=== PATIENT | male | born 1980 | race African-American/Black ===

== ENCOUNTER 2018-05-22 23:28 | Inpatient (IN) ==
[2018-05-23] MEDS ORDERED: ONDANSETRON 4 MG/2 ML VIAL IV PRN (01:57)
[2018-05-23] MEDS ORDERED: BISACODYL 5 MG TABLET PO PRN (01:57)
[2018-05-23] MEDS ORDERED: NICOTINE 21 MG/24 HR PATCH TRANSDERM PRN (01:57)
[2018-05-23] MEDS ORDERED: MORPHINE 4 MG/1 ML VIAL IV PRN (01:57)
[2018-05-23] MEDS ORDERED: guaiFENesin/DM ER 600-30 MG TABLET PO PRN (01:57)
[2018-05-23] MEDS ORDERED: ACETAMINOPHEN 325 MG TABLET PO PRN (01:57)
[2018-05-23] MEDS ORDERED: ALBUTEROL/IPRATROPIUM 3 ML NEB RESP TX PRN (01:57)
[2018-05-23] MEDS ORDERED: diphenhydrAMINE CAP 25 MG CAPSULE PO PRN (01:57)
[2018-05-23 03:00] LABS: Basophils # 0.1 10*3/uL (0.0-0.2); Basophils % 0.9 % (0.0-0.8); Eosinophils # 0.2 10*3/uL (0.0-0.87); Eosinophils % 1.8 % (0.00-10.9); Hematocrit 43.9 VOL% (42.0-52.0); Hemoglobin 14.3 GM/DL (14.0-18.0); Immature Granulocytes % 0.4 %; Immature Granulocytes Absolute 0.04 #; Lymphocytes % 29.4 % (21.2-54.2); Mean Corpuscular HGB Conc 32.6 GM/DL (32-36); Mean Corpuscular Hemoglobin 30 PG (27-34); Mean Corpuscular Volume 92.2 FL (87-102); Mean Platelet Volume 11.6 FL (9.6-12.0); Monocytes # 0.6 10*3/uL (0.11-0.8); Monocytes % 5.4 % (1.7-12.7); NRBC # 0.04 10*3/uL; Neutrophils # 6.4 10*3/uL (1.4-7.4); Neutrophils % 62.1 % (38.7-73.9); Platelet Count 173 T/CUMM (130-400); Red Blood Count 4.76 MC/CUMM (3.8-5.5); Red Cell Distribution Width 14.8 % (9.3-17.3); White Blood Count 10.2 T/CUMM (4-12)
[2018-05-23 03:08] LABS: Albumin 3.6 G/DL (3.4-5.0); Bilirubin,Total 0.9 MG/DL (0.2-1.0); Calcium 8.8 MG/DL (8.5-10.1); Osmolality,Calculated 281.4 MOS/KG (273-304); Potassium 3.8 MMOL/L (3.5-5.1); Risk Ratio 3.67; Thyroid Stimulating Hormone 2.55 uIU/ml (0.358-3.74); VLDL CHOLESTEROL 40.6 MG/DL
[2018-05-23 04:03] LABS: Basophils # 0.1 10*3/uL (0.0-0.2); Eosinophils # 0.2 10*3/uL (0.0-0.87); Eosinophils % 1.9 % (0.00-10.9); Hematocrit 41.1 VOL% (42.0-52.0); Hemoglobin 13.3 GM/DL (14.0-18.0); Immature Granulocytes % 0.4 %; Immature Granulocytes Absolute 0.04 #; Lymphocytes # 2.5 10*3/uL (1.4-4.0); Lymphocytes % 27.1 % (21.2-54.2); Mean Corpuscular HGB Conc 32.4 GM/DL (32-36); Mean Corpuscular Hemoglobin 30 PG (27-34); Monocytes # 0.6 10*3/uL (0.11-0.8); Monocytes % 6.2 % (1.7-12.7); NRBC # 0.02 10*3/uL; Neutrophils # 5.9 10*3/uL (1.4-7.4); Neutrophils % 63.4 % (38.7-73.9); Platelet Count 161 T/CUMM (130-400); Red Blood Count 4.42 MC/CUMM (3.8-5.5); Red Cell Distribution Width 14.8 % (9.3-17.3); White Blood Count 9.3 T/CUMM (4-12)
[2018-05-23] MEDS ORDERED: hydrALAZINE 20 MG/1 ML VIAL IV PRN (04:25)
[2018-05-23] MEDS: ALBUTEROL/IPRATROPIUM 3 ML NEB RESP TX SCH ×2 (07:11→13:10)
[2018-05-23] MEDS: FUROSEMIDE 40 MG/4 ML VIAL IV SCH ×2 (08:45→15:11)
[2018-05-23] MEDS: PANTOPRAZOLE 40 MG TABLET PO SCH (08:45)
[2018-05-23] MEDS: CARVEDILOL 6.25 MG TABLET PO SCH ×2 (08:53→20:46)
[2018-05-23] MEDS: ENOXAPARIN 40 MG/0.4 ML SYRINGE SUBCUT SCH (08:53)
[2018-05-23] MEDS ORDERED: ENOXAPARIN 40 MG/0.4 ML SYRINGE SUBCUT SCH (09:00)
[2018-05-23] MEDS ORDERED: ASPIRIN 325 MG TABLET PO SCH (09:00)
[2018-05-23] MEDS ORDERED: LOSARTAN 25 MG TABLET PO SCH (09:00)
[2018-05-23] MEDS ORDERED: CARVEDILOL 6.25 MG TABLET PO SCH (09:00)
[2018-05-23 11:42] LABS: Apearance,Urine CLEAR (Clear); Bilirubin,Urine Negative (Negative); Blood, Urine Negative (Negative); Glucose,Urine (UA) Negative (Negative); Ketones,Urine Negative (Negative); Nitrite,Urine Negative (Negative); Protein,Urine Negative; Urine Color Straw (Yellow); Urine Specific Gravity 1.005 (1.001-1.035); Urine Urobilinogen < 2.0 EU/DL (0.2-1.0); WBC,Urine <1 /HPF (0-6)
[2018-05-23 12:06] LABS: Barbiturates Screen,Urine Negative (Negative); Benzodiazepines Screen,Urine Negative (Negative); Cannabinoid Screen,Urine Negative (Negative); Opiate Screen,Urine Negative (Negative); Phencyclidine Screen,Urine Negative (Negative)
[2018-05-23 19:01] LABS: HIV Antigen/Antibody Result Nonreactive (Nonreactive)
[2018-05-23] MEDS: ATORVASTATIN 40 MG TABLET PO SCH (20:46)
[2018-05-24] MEDS: ZALEPLON 5 MG CAPSULE PO PRN (01:13)
[2018-05-24 07:16] LABS: Basophils # 0.1 10*3/uL (0.0-0.2); Basophils % 0.7 % (0.0-0.8); Eosinophils # 0.3 10*3/uL (0.0-0.87); Eosinophils % 3.5 % (0.00-10.9); Hemoglobin 13.6 GM/DL (14.0-18.0); Immature Granulocytes % 0.5 %; Immature Granulocytes Absolute 0.05 #; Lymphocytes % 21.9 % (21.2-54.2); Mean Corpuscular HGB Conc 31.6 GM/DL (32-36); Mean Corpuscular Hemoglobin 30 PG (27-34); Mean Corpuscular Volume 93.7 FL (87-102); Mean Platelet Volume 11.1 FL (9.6-12.0); Monocytes # 0.4 10*3/uL (0.11-0.8); Monocytes % 4.8 % (1.7-12.7); Neutrophils # 6.2 10*3/uL (1.4-7.4); Neutrophils % 68.6 % (38.7-73.9); Platelet Count 172 T/CUMM (130-400); Red Blood Count 4.59 MC/CUMM (3.8-5.5); Red Cell Distribution Width 14.9 % (9.3-17.3); White Blood Count 9.1 T/CUMM (4-12)
[2018-05-24 07:32] LABS: Calcium 8.6 MG/DL (8.5-10.1); Osmolality,Calculated 283.3 MOS/KG (273-304); Potassium 3.8 MMOL/L (3.5-5.1)
[2018-05-24] MEDS: FUROSEMIDE 40 MG/4 ML VIAL IV SCH ×2 (08:06→15:17)
[2018-05-24] MEDS: ASPIRIN EC 81 MG TABLET PO SCH ×2 (08:18→12:25)
[2018-05-24] MEDS: ENOXAPARIN 40 MG/0.4 ML SYRINGE SUBCUT SCH ×2 (08:18→12:25)
[2018-05-24] MEDS: PANTOPRAZOLE 40 MG TABLET PO SCH (08:18)
[2018-05-24] MEDS: LISINOPRIL 2.5 MG TABLET PO SCH (08:18)
[2018-05-24] MEDS: CARVEDILOL 6.25 MG TABLET PO SCH ×2 (08:18→20:46)
[2018-05-24] MEDS ORDERED: POTASSIUM CHLORIDE RIDER 10 MEQ in PREMIX 1 EACH IV PRN (09:57)
[2018-05-24] MEDS ORDERED: MAGNESIUM SULF RIDER 2 GM in PREMIX 1 EACH IV PRN (09:57)
[2018-05-24] MEDS ORDERED: diphenhydrAMINE CAP 25 MG CAPSULE PO ONE (09:57)
[2018-05-24] MEDS ORDERED: DIAZEPAM 5 MG TABLET PO ONE (09:57)
[2018-05-24 10:28] LABS: INR 1.1; PT Patient Result 11.6 SECS
[2018-05-24] MEDS ORDERED: HEPARIN/NACL 0.9% 2 UNITS/ML 1,000 ML IV ONE (12:16)
[2018-05-24] MEDS ORDERED: SODIUM BICARBONATE 2.4 MEQ/5 ML VIAL ONE (12:39)
[2018-05-24] MEDS ORDERED: LIDOCAINE 1% 20 ML VIAL ONE (12:39)
[2018-05-24] MEDS ORDERED: fentaNYL 100 MCG/2 ML VIAL ONE (12:39)
[2018-05-24] MEDS ORDERED: MIDAZOLAM 2 MG/2 ML VIAL ONE (12:39)
[2018-05-24] MEDS ORDERED: hydrALAZINE 20 MG/1 ML VIAL ONE (12:59)
[2018-05-24] MEDS ORDERED: ACETAMINOPHEN/CODEINE 300-30 MG TABLET PO PRN (13:25)
[2018-05-24] MEDS ORDERED: SODIUM CHLORIDE 0.9% 1,000 ML IV SCH (13:30)
[2018-05-24] MEDS: ATORVASTATIN 40 MG TABLET PO SCH (20:46)
[2018-05-25] MEDS: ZALEPLON 5 MG CAPSULE PO PRN (00:46)
[2018-05-25 05:53] LABS: Basophils # 0.1 10*3/uL (0.0-0.2); Basophils % 0.9 % (0.0-0.8); Eosinophils # 0.3 10*3/uL (0.0-0.87); Eosinophils % 4.2 % (0.00-10.9); Hematocrit 41.9 VOL% (42.0-52.0); Hemoglobin 13.4 GM/DL (14.0-18.0); Immature Granulocytes % 0.4 %; Immature Granulocytes Absolute 0.03 #; Lymphocytes # 2.4 10*3/uL (1.4-4.0); Lymphocytes % 29.5 % (21.2-54.2); Mean Corpuscular Hemoglobin 30 PG (27-34); Mean Corpuscular Volume 92.7 FL (87-102); Mean Platelet Volume 11.2 FL (9.6-12.0); Monocytes # 0.4 10*3/uL (0.11-0.8); Monocytes % 5.4 % (1.7-12.7); Neutrophils # 4.9 10*3/uL (1.4-7.4); Neutrophils % 59.6 % (38.7-73.9); Platelet Count 164 T/CUMM (130-400); Red Blood Count 4.52 MC/CUMM (3.8-5.5); Red Cell Distribution Width 14.8 % (9.3-17.3); White Blood Count 8.2 T/CUMM (4-12)
[2018-05-25 06:07] LABS: Calcium 8.5 MG/DL (8.5-10.1); Osmolality,Calculated 278.7 MOS/KG (273-304)
[2018-05-25] MEDS: FUROSEMIDE 40 MG/4 ML VIAL IV SCH (08:46)
[2018-05-25] MEDS: PANTOPRAZOLE 40 MG TABLET PO SCH (08:47)
[2018-05-25] MEDS: ASPIRIN EC 81 MG TABLET PO SCH (08:47)
[2018-05-25] MEDS: CARVEDILOL 6.25 MG TABLET PO SCH (08:47)
[2018-05-25] MEDS: LISINOPRIL 2.5 MG TABLET PO SCH (08:47)
[2018-05-25] MEDS: ENOXAPARIN 40 MG/0.4 ML SYRINGE SUBCUT SCH (08:47)
[2018-05-25 15:13] VITALS: BP 126/74
== END 2018-05-25 15:23 | disposition home or self-care (01) | DRG 287 ==
LOC: SUATTDRO 05-23 01:08 → N.5E 05-23 01:08 → INTOOBSV 05-23 01:08
PROVIDERS: ADMIT Internal Medicine; ATTEND Internal Medicine
PROC: CLCCHCL (ICD-10-PCS; 2018-05-24 12:15)

== ENCOUNTER 2018-06-21 02:18 | Inpatient (IN) ==
[2018-06-21] MEDS ORDERED: ZALEPLON 5 MG CAPSULE PO PRN (03:01)
[2018-06-21] MEDS ORDERED: MAGNESIUM SULF RIDER 4 GM in PREMIX 1 EACH IV PRN (03:01)
[2018-06-21] MEDS ORDERED: MAGNESIUM SULF RIDER 2 GM in PREMIX 1 EACH IV PRN (03:01)
[2018-06-21] MEDS ORDERED: DOCUSATE SODIUM 100 MG CAPSULE PO PRN (03:01)
[2018-06-21] MEDS ORDERED: POTASSIUM CHLORIDE RIDER 10 MEQ in PREMIX 1 EACH IV PRN (03:01)
[2018-06-21] MEDS ORDERED: MORPHINE 4 MG/1 ML VIAL IV PRN (03:01)
[2018-06-21] MEDS ORDERED: ONDANSETRON 4 MG/2 ML VIAL IV PRN (03:01)
[2018-06-21] MEDS ORDERED: ACETAMINOPHEN 325 MG TABLET PO PRN (03:01)
[2018-06-21] MEDS ORDERED: ENOXAPARIN 120 MG/0.8 ML SYRINGE SUBCUT SCH (04:30)
[2018-06-21 05:36] LABS: Basophils # 0.1 10*3/uL (0.0-0.2); Basophils % 0.7 % (0.0-0.8); Eosinophils # 0.1 10*3/uL (0.0-0.87); Eosinophils % 1.4 % (0.00-10.9); Hematocrit 42.9 VOL% (42.0-52.0); Hemoglobin 13.3 GM/DL (14.0-18.0); Immature Granulocytes % 0.5 %; Immature Granulocytes Absolute 0.04 #; Lymphocytes # 2.3 10*3/uL (1.4-4.0); Lymphocytes % 28.7 % (21.2-54.2); Mean Corpuscular Hemoglobin 29 PG (27-34); Mean Corpuscular Volume 94.7 FL (87-102); Mean Platelet Volume 11.3 FL (9.6-12.0); Monocytes # 0.7 10*3/uL (0.11-0.8); Monocytes % 8.7 % (1.7-12.7); NRBC # 0.02 10*3/uL; Neutrophils # 4.9 10*3/uL (1.4-7.4); Platelet Count 143 T/CUMM (130-400); Red Blood Count 4.53 MC/CUMM (3.8-5.5); White Blood Count 8.1 T/CUMM (4-12)
[2018-06-21 05:56] LABS: Albumin 3.4 G/DL (3.4-5.0); Bilirubin,Total 1.5 MG/DL (0.2-1.0); Calcium 8.6 MG/DL (8.5-10.1); Osmolality,Calculated 285.1 MOS/KG (273-304); Potassium 3.8 MMOL/L (3.5-5.1); Total Protein 6.8 G/DL (6.4-8.3)
[2018-06-21] MEDS ORDERED: PANTOPRAZOLE 40 MG TABLET PO SCH (09:00)
[2018-06-21] MEDS: CARVEDILOL 12.5 MG TABLET PO SCH ×2 (11:25→21:47)
[2018-06-21] MEDS: ASPIRIN EC 81 MG TABLET PO SCH (11:25)
[2018-06-21] MEDS: LISINOPRIL 2.5 MG TABLET PO SCH (11:25)
[2018-06-21] MEDS: NICOTINE 21 MG/24 HR PATCH TRANSDERM SCH (11:26)
[2018-06-21] MEDS: FUROSEMIDE 40 MG TABLET PO SCH (15:33)
[2018-06-21] MEDS: POLYETHYLENE GLYCOL POWDER 17 GM PACK PO SCH (17:15)
[2018-06-21] MEDS ORDERED: ATORVASTATIN 40 MG TABLET PO SCH (21:00)
[2018-06-21] MEDS: APIXABAN 5 MG TABLET PO SCH (21:47)
[2018-06-21] MEDS ORDERED: FUROSEMIDE 20 MG/2 ML VIAL IV ONE (22:25)
[2018-06-22 04:18] LABS: Basophils # 0.1 10*3/uL (0.0-0.2); Basophils % 0.8 % (0.0-0.8); Eosinophils # 0.2 10*3/uL (0.0-0.87); Eosinophils % 2.5 % (0.00-10.9); Hematocrit 41.7 VOL% (42.0-52.0); Hemoglobin 13.2 GM/DL (14.0-18.0); Immature Granulocytes % 0.3 %; Immature Granulocytes Absolute 0.02 #; Lymphocytes # 2.1 10*3/uL (1.4-4.0); Lymphocytes % 26.2 % (21.2-54.2); Mean Corpuscular HGB Conc 31.7 GM/DL (32-36); Mean Corpuscular Hemoglobin 29 PG (27-34); Mean Corpuscular Volume 92.9 FL (87-102); Mean Platelet Volume 10.8 FL (9.6-12.0); Monocytes # 0.6 10*3/uL (0.11-0.8); Monocytes % 7.4 % (1.7-12.7); Neutrophils # 4.9 10*3/uL (1.4-7.4); Neutrophils % 62.8 % (38.7-73.9); Platelet Count 131 T/CUMM (130-400); Red Blood Count 4.49 MC/CUMM (3.8-5.5); Red Cell Distribution Width 14.1 % (9.3-17.3); White Blood Count 7.9 T/CUMM (4-12)
[2018-06-22 04:58] LABS: Calcium 8.4 MG/DL (8.5-10.1); Osmolality,Calculated 280.5 MOS/KG (273-304); Potassium 3.8 MMOL/L (3.5-5.1)
[2018-06-22] MEDS ORDERED: POTASSIUM CHLORIDE 20 MEQ TABLET PO SCH (09:00)
[2018-06-22] MEDS ORDERED: PANTOPRAZOLE 40 MG TABLET PO SCH (09:00)
[2018-06-22] MEDS: ASPIRIN EC 81 MG TABLET PO SCH (09:42)
[2018-06-22] MEDS: LISINOPRIL 2.5 MG TABLET PO SCH (09:42)
[2018-06-22] MEDS: FUROSEMIDE 40 MG TABLET PO SCH (09:43)
[2018-06-22] MEDS: APIXABAN 5 MG TABLET PO SCH (09:43)
[2018-06-22] MEDS: CARVEDILOL 12.5 MG TABLET PO SCH (09:43)
[2018-06-22] MEDS: POLYETHYLENE GLYCOL POWDER 17 GM PACK PO SCH (09:43)
[2018-06-22] MEDS: NICOTINE 21 MG/24 HR PATCH TRANSDERM SCH (09:44)
[2018-06-22 11:53] VITALS: BP 96/56
== END 2018-06-22 15:10 | disposition home or self-care (01) | DRG 392 ==
LOC: N.CC 03:36 → N.TELEN 19:20
PROVIDERS: ADMIT Internal Medicine Cardiovascular Disease; ATTEND Internal Medicine Cardiovascular Disease

== ENCOUNTER 2018-08-16 15:38 | Inpatient (IN) ==
[2018-08-16] MEDS ORDERED: FUROSEMIDE 100 MG/10 ML VIAL IV STA (16:06)
[2018-08-16] MEDS ORDERED: traZODone 50 MG TABLET PO PRN (17:22)
[2018-08-16] MEDS ORDERED: MAGNESIUM SULF RIDER 2 GM in PREMIX 1 EACH IV PRN (17:22)
[2018-08-16] MEDS ORDERED: MORPHINE 4 MG/1 ML VIAL IV PRN (17:22)
[2018-08-16] MEDS ORDERED: POTASSIUM CHLORIDE RIDER 10 MEQ in PREMIX 1 EACH IV PRN (17:22)
[2018-08-16] MEDS ORDERED: PROMETHAZINE 25 MG/1 ML VIAL IM PRN (17:22)
[2018-08-16] MEDS ORDERED: ONDANSETRON 4 MG/2 ML VIAL IV PRN (17:22)
[2018-08-16] MEDS ORDERED: MAGNESIUM SULF RIDER 4 GM in PREMIX 1 EACH IV PRN (17:22)
[2018-08-16] MEDS ORDERED: ACETAMINOPHEN 325 MG TABLET PO PRN (17:22)
[2018-08-16] MEDS: CARVEDILOL 12.5 MG TABLET PO SCH (21:47)
[2018-08-16] MEDS: APIXABAN 5 MG TABLET PO SCH (21:47)
[2018-08-16] MEDS: ATORVASTATIN 40 MG TABLET PO SCH (21:47)
[2018-08-16] MEDS: DOCUSATE SODIUM 100 MG CAPSULE PO SCH (21:47)
[2018-08-17] MEDS: ALBUTEROL/IPRATROPIUM 3 ML NEB RESP TX PRN (00:09)
[2018-08-17] MEDS ORDERED: FUROSEMIDE 40 MG/4 ML VIAL IV ONE (00:29)
[2018-08-17 00:51] LABS: ABG Base Excess -0.1 MMOL/L (-2.5-2.5); ABG HCO3 24.4 MMOL/L (20-26); ABG Oxygen Saturation 98.9 % (95-100); ABG PCO2 25.9 MM HG (35-48); ABG TCO2 17.9 MMOL/L (23-27); Allen Test Positive
[2018-08-17 04:39] LABS: Basophils # 0.1 10*3/uL (0.0-0.2); Eosinophils % 0.4 % (0.00-10.9); Hematocrit 44.3 VOL% (42.0-52.0); Immature Granulocytes % 0.4 %; Immature Granulocytes Absolute 0.03 #; Lymphocytes # 1.4 10*3/uL (1.4-4.0); Mean Corpuscular HGB Conc 31.6 GM/DL (32-36); Mean Corpuscular Volume 91.2 FL (87-102); Mean Platelet Volume 10.4 FL (9.6-12.0); Monocytes % 6.4 % (1.7-12.7); NRBC # 0.02 10*3/uL; Neutrophils % 73.8 % (38.7-73.9); Platelet Count 162 T/CUMM (130-400); Red Blood Count 4.86 MC/CUMM (3.8-5.5); Red Cell Distribution Width 15.3 % (9.3-17.3); White Blood Count 7.8 T/CUMM (4-12)
[2018-08-17 04:53] LABS: Bilirubin,Total 2.4 MG/DL (0.2-1.0); Calcium 9.4 MG/DL (8.5-10.1); Osmolality,Calculated 276.7 MOS/KG (273-304); Total Protein 7.9 G/DL (6.4-8.3)
[2018-08-17] MEDS: FUROSEMIDE 40 MG/4 ML VIAL IV SCH ×2 (08:40→15:40)
[2018-08-17] MEDS: PANTOPRAZOLE 40 MG TABLET PO SCH (08:41)
[2018-08-17] MEDS: CARVEDILOL 12.5 MG TABLET PO SCH ×2 (08:41→20:58)
[2018-08-17] MEDS: ASPIRIN EC 81 MG TABLET PO SCH (08:41)
[2018-08-17] MEDS: APIXABAN 5 MG TABLET PO SCH (08:41)
[2018-08-17] MEDS: BISACODYL 5 MG TABLET PO SCH (08:41)
[2018-08-17] MEDS: DOCUSATE SODIUM 100 MG CAPSULE PO SCH ×2 (08:41→20:58)
[2018-08-17] MEDS: POTASSIUM CHLORIDE 20 MEQ TABLET PO SCH (08:41)
[2018-08-17] MEDS: LISINOPRIL 2.5 MG TABLET PO SCH (08:41)
[2018-08-17] MEDS ORDERED: NICOTINE 14 MG/24 HR PATCH TRANSDERM PRN (08:48)
[2018-08-17] MEDS ORDERED: POLYETHYLENE GLYCOL POWDER 17 GM PACK PO PRN (08:55)
[2018-08-17] MEDS: WARFARIN 5 MG TABLET PO SCH (17:52)
[2018-08-17] MEDS: ENOXAPARIN 120 MG/0.8 ML SYRINGE SUBCUT SCH (20:58)
[2018-08-17] MEDS: ATORVASTATIN 40 MG TABLET PO SCH (20:58)
[2018-08-18 05:01] LABS: Basophils # 0.1 10*3/uL (0.0-0.2); Basophils % 0.8 % (0.0-0.8); Eosinophils # 0.1 10*3/uL (0.0-0.87); Eosinophils % 1.9 % (0.00-10.9); Hematocrit 43.3 VOL% (42.0-52.0); Hemoglobin 13.9 GM/DL (14.0-18.0); Immature Granulocytes % 0.4 %; Immature Granulocytes Absolute 0.03 #; Lymphocytes # 2.1 10*3/uL (1.4-4.0); Lymphocytes % 27.5 % (21.2-54.2); Mean Corpuscular HGB Conc 32.1 GM/DL (32-36); Mean Corpuscular Volume 90.8 FL (87-102); Monocytes % 5.8 % (1.7-12.7); NRBC # 0.02 10*3/uL; Neutrophils % 63.6 % (38.7-73.9); Platelet Count 152 T/CUMM (130-400); Red Blood Count 4.77 MC/CUMM (3.8-5.5); Red Cell Distribution Width 15.3 % (9.3-17.3); White Blood Count 7.5 T/CUMM (4-12)
[2018-08-18 05:44] LABS: Albumin 3.6 G/DL (3.4-5.0); Bilirubin,Total 1.5 MG/DL (0.2-1.0); Osmolality,Calculated 281.5 MOS/KG (273-304); Total Protein 7.4 G/DL (6.4-8.3)
[2018-08-18] MEDS: LISINOPRIL 2.5 MG TABLET PO SCH (09:35)
[2018-08-18] MEDS: CARVEDILOL 12.5 MG TABLET PO SCH ×2 (09:35→20:59)
[2018-08-18] MEDS: POTASSIUM CHLORIDE 20 MEQ TABLET PO SCH (09:35)
[2018-08-18] MEDS: DOCUSATE SODIUM 100 MG CAPSULE PO SCH ×2 (09:35→20:59)
[2018-08-18] MEDS: ENOXAPARIN 120 MG/0.8 ML SYRINGE SUBCUT SCH ×2 (09:36→20:59)
[2018-08-18] MEDS: ASPIRIN EC 81 MG TABLET PO SCH (09:36)
[2018-08-18] MEDS: FUROSEMIDE 40 MG/4 ML VIAL IV SCH ×2 (09:36→15:56)
[2018-08-18] MEDS: PANTOPRAZOLE 40 MG TABLET PO SCH (09:36)
[2018-08-18] MEDS: BISACODYL 5 MG TABLET PO SCH (09:41)
[2018-08-18] MEDS: WARFARIN 5 MG TABLET PO SCH (17:06)
[2018-08-18] MEDS: ATORVASTATIN 40 MG TABLET PO SCH (20:59)
[2018-08-19 04:41] LABS: Basophils # 0.1 10*3/uL (0.0-0.2); Basophils % 0.8 % (0.0-0.8); Eosinophils # 0.1 10*3/uL (0.0-0.87); Eosinophils % 1.9 % (0.00-10.9); Hematocrit 41.8 VOL% (42.0-52.0); Hemoglobin 13.5 GM/DL (14.0-18.0); Immature Granulocytes % 0.3 %; Immature Granulocytes Absolute 0.02 #; Lymphocytes # 2.6 10*3/uL (1.4-4.0); Lymphocytes % 35.7 % (21.2-54.2); Mean Corpuscular HGB Conc 32.3 GM/DL (32-36); Mean Corpuscular Volume 91.3 FL (87-102); Mean Platelet Volume 11.2 FL (9.6-12.0); Monocytes % 6.3 % (1.7-12.7); Platelet Count 154 T/CUMM (130-400); Red Blood Count 4.58 MC/CUMM (3.8-5.5); Red Cell Distribution Width 15.4 % (9.3-17.3); White Blood Count 7.3 T/CUMM (4-12)
[2018-08-19 04:57] LABS: INR 1.2
[2018-08-19 05:05] LABS: Albumin 3.6 G/DL (3.4-5.0); Bilirubin,Total 1.1 MG/DL (0.2-1.0); Calcium 8.7 MG/DL (8.5-10.1); Osmolality,Calculated 282.5 MOS/KG (273-304); Total Protein 7.4 G/DL (6.4-8.3)
[2018-08-19] MEDS: POTASSIUM CHLORIDE 20 MEQ TABLET PO SCH (09:10)
[2018-08-19] MEDS: PANTOPRAZOLE 40 MG TABLET PO SCH (09:10)
[2018-08-19] MEDS: LISINOPRIL 2.5 MG TABLET PO SCH (09:10)
[2018-08-19] MEDS: ASPIRIN EC 81 MG TABLET PO SCH (09:10)
[2018-08-19] MEDS: FUROSEMIDE 40 MG/4 ML VIAL IV SCH ×3 (09:11→15:32)
[2018-08-19] MEDS: ENOXAPARIN 120 MG/0.8 ML SYRINGE SUBCUT SCH ×2 (09:11→20:35)
[2018-08-19] MEDS: BISACODYL 5 MG TABLET PO SCH (09:12)
[2018-08-19] MEDS: DOCUSATE SODIUM 100 MG CAPSULE PO SCH ×2 (09:12→20:36)
[2018-08-19] MEDS: CARVEDILOL 12.5 MG TABLET PO SCH (09:14)
[2018-08-19] MEDS: ALBUTEROL/IPRATROPIUM 3 ML NEB RESP TX PRN (14:16)
[2018-08-19] MEDS: BUMETANIDE 1 MG/4 ML VIAL IV SCH (17:02)
[2018-08-19] MEDS: metOLazone 5 MG TABLET PO SCH (17:03)
[2018-08-19] MEDS: WARFARIN 5 MG TABLET PO SCH (17:03)
[2018-08-19] MEDS: ATORVASTATIN 40 MG TABLET PO SCH (20:35)
[2018-08-19] MEDS: buPROPion SR 100 MG TABLET PO SCH (20:35)
[2018-08-19] MEDS: NEBIVOLOL 5 MG TABLET PO SCH (20:35)
[2018-08-20 06:12] LABS: Basophils # 0.1 10*3/uL (0.0-0.2); Basophils % 0.9 % (0.0-0.8); Eosinophils # 0.1 10*3/uL (0.0-0.87); Eosinophils % 1.6 % (0.00-10.9); Hematocrit 45.6 VOL% (42.0-52.0); Hemoglobin 14.7 GM/DL (14.0-18.0); Immature Granulocytes % 0.3 %; Immature Granulocytes Absolute 0.02 #; Lymphocytes # 2.3 10*3/uL (1.4-4.0); Mean Corpuscular HGB Conc 32.2 GM/DL (32-36); Mean Corpuscular Volume 91.6 FL (87-102); Mean Platelet Volume 11.3 FL (9.6-12.0); Neutrophils % 57.2 % (38.7-73.9); Platelet Count 153 T/CUMM (130-400); Red Blood Count 4.98 MC/CUMM (3.8-5.5); Red Cell Distribution Width 15.6 % (9.3-17.3); White Blood Count 6.9 T/CUMM (4-12)
[2018-08-20 06:16] LABS: INR 1.3; PT Patient Result 13.8 SECS
[2018-08-20 06:26] LABS: Albumin 3.8 G/DL (3.4-5.0); Calcium 8.8 MG/DL (8.5-10.1); Total Protein 7.9 G/DL (6.4-8.3)
[2018-08-20] MEDS: BISACODYL 5 MG TABLET PO SCH (08:26)
[2018-08-20] MEDS: PANTOPRAZOLE 40 MG TABLET PO SCH (08:26)
[2018-08-20] MEDS: DOCUSATE SODIUM 100 MG CAPSULE PO SCH ×2 (08:26→21:08)
[2018-08-20] MEDS: ASPIRIN EC 81 MG TABLET PO SCH (08:26)
[2018-08-20] MEDS: LISINOPRIL 2.5 MG TABLET PO SCH (08:26)
[2018-08-20] MEDS: metOLazone 5 MG TABLET PO SCH (08:26)
[2018-08-20] MEDS: NEBIVOLOL 5 MG TABLET PO SCH (08:26)
[2018-08-20] MEDS: ENOXAPARIN 120 MG/0.8 ML SYRINGE SUBCUT SCH ×2 (08:27→21:08)
[2018-08-20] MEDS: POTASSIUM CHLORIDE 20 MEQ TABLET PO SCH (08:27)
[2018-08-20] MEDS: BUMETANIDE 1 MG/4 ML VIAL IV SCH ×2 (08:27→17:09)
[2018-08-20] MEDS: buPROPion SR 100 MG TABLET PO SCH ×2 (08:32→21:09)
[2018-08-20] MEDS: LACTULOSE 20 GM/30 ML UDCUP PO PRN ×2 (17:35→21:08)
[2018-08-20] MEDS ORDERED: WARFARIN 7.5 MG TABLET PO SCH (18:00)
[2018-08-20] MEDS: ATORVASTATIN 40 MG TABLET PO SCH (21:08)
[2018-08-21] MEDS: ALBUTEROL/IPRATROPIUM 3 ML NEB RESP TX PRN (03:06)
[2018-08-21 06:20] LABS: Basophils # 0.1 10*3/uL (0.0-0.2); Basophils % 0.7 % (0.0-0.8); Eosinophils # 0.2 10*3/uL (0.0-0.87); Eosinophils % 1.7 % (0.00-10.9); Hematocrit 44.6 VOL% (42.0-52.0); Hemoglobin 14.4 GM/DL (14.0-18.0); Immature Granulocytes % 0.2 %; Immature Granulocytes Absolute 0.02 #; Lymphocytes # 1.9 10*3/uL (1.4-4.0); Lymphocytes % 19.6 % (21.2-54.2); Mean Corpuscular HGB Conc 32.3 GM/DL (32-36); Mean Corpuscular Volume 90.8 FL (87-102); Mean Platelet Volume 11.9 FL (9.6-12.0); Neutrophils % 71.8 % (38.7-73.9); Platelet Count 161 T/CUMM (130-400); Red Blood Count 4.91 MC/CUMM (3.8-5.5); Red Cell Distribution Width 15.4 % (9.3-17.3); White Blood Count 9.6 T/CUMM (4-12)
[2018-08-21 06:31] LABS: INR 1.5; PT Patient Result 16.3 SECS
[2018-08-21 06:34] LABS: Calcium 9.7 MG/DL (8.5-10.1); Osmolality,Calculated 275.1 MOS/KG (273-304)
[2018-08-21] MEDS: metOLazone 5 MG TABLET PO SCH (08:45)
[2018-08-21] MEDS: DOCUSATE SODIUM 100 MG CAPSULE PO SCH (08:45)
[2018-08-21] MEDS: POTASSIUM CHLORIDE 20 MEQ TABLET PO SCH (08:46)
[2018-08-21] MEDS: NEBIVOLOL 5 MG TABLET PO SCH (08:46)
[2018-08-21] MEDS: PANTOPRAZOLE 40 MG TABLET PO SCH (08:46)
[2018-08-21] MEDS: BISACODYL 5 MG TABLET PO SCH (08:46)
[2018-08-21] MEDS: ASPIRIN EC 81 MG TABLET PO SCH (08:46)
[2018-08-21] MEDS: LISINOPRIL 2.5 MG TABLET PO SCH (08:46)
[2018-08-21] MEDS: buPROPion SR 100 MG TABLET PO SCH (08:47)
[2018-08-21] MEDS: LACTULOSE 20 GM/30 ML UDCUP PO PRN (08:48)
[2018-08-21] MEDS: ENOXAPARIN 120 MG/0.8 ML SYRINGE SUBCUT SCH (09:30)
[2018-08-21] MEDS: BUMETANIDE 1 MG/4 ML VIAL IV SCH (10:15)
[2018-08-21 11:54] VITALS: BP 97/81
== END 2018-08-21 14:53 | disposition home or self-care (01) | DRG 292 ==
LOC: EDUNIT# → N.ED 15:38 → N.EDINP 15:38 → N.TELES 18:49
PROVIDERS: ADMIT Hospitalist; ATTEND Hospitalist

== ENCOUNTER 2018-11-27 05:00 | Inpatient (IN) ==
[2018-11-27] MEDS ORDERED: ONDANSETRON 4 MG/2 ML VIAL IV PRN (06:40)
[2018-11-27 08:03] LABS: Basophils # 0.1 10*3/uL (0.0-0.2); Basophils % 0.9 % (0.0-0.8); Eosinophils # 0.2 10*3/uL (0.0-0.87); Eosinophils % 2.3 % (0.00-10.9); Hematocrit 42.3 VOL% (42.0-52.0); Hemoglobin 13.4 GM/DL (14.0-18.0); Immature Granulocytes % 0.5 %; Immature Granulocytes Absolute 0.03 #; Lymphocytes # 2.3 10*3/uL (1.4-4.0); Lymphocytes % 34.4 % (21.2-54.2); Mean Corpuscular HGB Conc 31.7 GM/DL (32-36); Mean Corpuscular Volume 97.2 FL (87-102); Mean Platelet Volume 10.7 FL (9.6-12.0); NRBC # 0.02 10*3/uL; Neutrophils % 56.9 % (38.7-73.9); Platelet Count 189 T/CUMM (130-400); Red Blood Count 4.35 MC/CUMM (3.8-5.5); White Blood Count 6.6 T/CUMM (4-12)
[2018-11-27 08:24] LABS: Albumin 3.6 G/DL (3.4-5.0); Bilirubin,Total 1.3 MG/DL (0.2-1.0); Osmolality,Calculated 279.5 MOS/KG (273-304); Total Protein 7.8 G/DL (6.4-8.3)
[2018-11-27] MEDS: PANTOPRAZOLE 40 MG TABLET PO SCH (09:25)
[2018-11-27] MEDS: APIXABAN 5 MG TABLET PO SCH ×2 (11:14→21:40)
[2018-11-27] MEDS: FUROSEMIDE 40 MG/4 ML VIAL IV SCH (16:24)
[2018-11-27] MEDS: metOLazone 5 MG TABLET PO SCH (17:29)
[2018-11-27] MEDS ORDERED: FUROSEMIDE 40 MG/4 ML VIAL IV ONE (18:50)
[2018-11-27] MEDS ORDERED: NITROGLYCERIN SL 0.4 MG TABLET SL PRN (19:43)
[2018-11-27] MEDS: MORPHINE 4 MG/1 ML VIAL IV PRN (19:52)
[2018-11-27] MEDS: ATORVASTATIN 40 MG TABLET PO SCH (21:40)
[2018-11-28 05:37] LABS: Basophils # 0.1 10*3/uL (0.0-0.2); Basophils % 0.9 % (0.0-0.8); Eosinophils # 0.2 10*3/uL (0.0-0.87); Eosinophils % 3.3 % (0.00-10.9); Hematocrit 41.3 VOL% (42.0-52.0); Hemoglobin 13.2 GM/DL (14.0-18.0); Immature Granulocytes % 0.3 %; Immature Granulocytes Absolute 0.02 #; Lymphocytes # 2.1 10*3/uL (1.4-4.0); Lymphocytes % 32.8 % (21.2-54.2); Mean Corpuscular Volume 96.7 FL (87-102); Monocytes % 5.9 % (1.7-12.7); NRBC # 0.02 10*3/uL; Neutrophils % 56.8 % (38.7-73.9); Platelet Count 181 T/CUMM (130-400); Red Blood Count 4.27 MC/CUMM (3.8-5.5); Red Cell Distribution Width 17.8 % (9.3-17.3); White Blood Count 6.4 T/CUMM (4-12)
[2018-11-28 06:02] LABS: Albumin 3.4 G/DL (3.4-5.0); Calcium 9.4 MG/DL (8.5-10.1); Osmolality,Calculated 279.5 MOS/KG (273-304); Total Protein 7.3 G/DL (6.4-8.3)
[2018-11-28] MEDS: LISINOPRIL 2.5 MG TABLET PO SCH (08:28)
[2018-11-28] MEDS: APIXABAN 5 MG TABLET PO SCH ×2 (08:28→20:50)
[2018-11-28] MEDS: ASPIRIN EC 81 MG TABLET PO SCH (08:28)
[2018-11-28] MEDS: POTASSIUM CHLORIDE 20 MEQ TABLET PO SCH (08:28)
[2018-11-28] MEDS: metOLazone 5 MG TABLET PO SCH (08:29)
[2018-11-28] MEDS: PANTOPRAZOLE 40 MG TABLET PO SCH (08:29)
[2018-11-28] MEDS: FUROSEMIDE 40 MG/4 ML VIAL IV SCH ×2 (08:29→16:48)
[2018-11-28] MEDS ORDERED: BISACODYL 5 MG TABLET PO PRN (08:37)
[2018-11-28] MEDS ORDERED: PANTOPRAZOLE 40 MG TABLET PO SCH (09:00)
[2018-11-28] MEDS ORDERED: NEBIVOLOL 5 MG TABLET PO SCH (09:00)
[2018-11-28 12:42] LABS: Troponin I 0.021 NG/ML (0.00-0.045)
[2018-11-28] MEDS: MORPHINE 4 MG/1 ML VIAL IV PRN (15:52)
[2018-11-28] MEDS: CARVEDILOL 3.125 MG TABLET PO SCH (16:48)
[2018-11-28] MEDS: ATORVASTATIN 40 MG TABLET PO SCH (20:50)
[2018-11-29] MEDS ORDERED: FUROSEMIDE 40 MG TABLET PO SCH (08:05)
[2018-11-29] MEDS: LISINOPRIL 2.5 MG TABLET PO SCH (08:37)
[2018-11-29] MEDS: CARVEDILOL 3.125 MG TABLET PO SCH (08:37)
[2018-11-29] MEDS: APIXABAN 5 MG TABLET PO SCH (08:38)
[2018-11-29] MEDS: POTASSIUM CHLORIDE 20 MEQ TABLET PO SCH (08:38)
[2018-11-29] MEDS: ASPIRIN EC 81 MG TABLET PO SCH (08:38)
[2018-11-29] MEDS: metOLazone 5 MG TABLET PO SCH (08:38)
[2018-11-29] MEDS: PANTOPRAZOLE 40 MG TABLET PO SCH (08:38)
[2018-11-29] MEDS: FUROSEMIDE 40 MG/4 ML VIAL IV SCH (09:23)
[2018-11-29 09:30] LABS: Calcium 9.6 MG/DL (8.5-10.1)
[2018-11-29] MEDS ORDERED: traMADol 50 MG TABLET PO ONE (10:04)
[2018-11-29 11:33] VITALS: BP 101/76
== END 2018-11-29 14:51 | disposition home or self-care (01) | DRG 291 ==
LOC: SUATTDRO 06:14 → N.2E 06:14
PROVIDERS: ADMIT Internal Medicine; ATTEND Internal Medicine

== ENCOUNTER 2019-01-03 15:28 | Observation (INO) ==
[2019-01-03] MEDS ORDERED: INFLUENZA VIRUS VACCINE 0.5 ML SYRINGE IM ONE (17:45)
[2019-01-03] MEDS ORDERED: ACETAMINOPHEN 325 MG TABLET PO PRN (18:01)
[2019-01-03] MEDS ORDERED: ONDANSETRON 4 MG/2 ML VIAL IV PRN (18:01)
[2019-01-03] MEDS ORDERED: MORPHINE 4 MG/1 ML VIAL IV ONE (18:25)
[2019-01-03] MEDS ORDERED: MORPHINE 4 MG/1 ML VIAL ONE (18:41)
[2019-01-03] MEDS: NICOTINE 14 MG/24 HR PATCH TRANSDERM SCH (19:02)
[2019-01-03] MEDS ORDERED: ATORVASTATIN 40 MG TABLET PO SCH (21:00)
[2019-01-03] MEDS: carvediloL 6.25 MG TABLET PO SCH (21:05)
[2019-01-03] MEDS: APIXABAN 5 MG TABLET PO SCH (21:05)
[2019-01-04] MEDS: KETOROLAC 15 MG/1 ML VIAL IV PRN ×2 (00:36→08:31)
[2019-01-04 04:19] LABS: Basophils # 0.1 10*3/uL (0.0-0.2); Basophils % 0.7 % (0.0-0.8); Eosinophils # 0.1 10*3/uL (0.0-0.87); Eosinophils % 0.5 % (0.00-10.9); Hematocrit 45.4 VOL% (42.0-52.0); Hemoglobin 15.1 GM/DL (14.0-18.0); Immature Granulocytes % 0.5 %; Immature Granulocytes Absolute 0.05 #; Lymphocytes # 2.1 10*3/uL (1.4-4.0); Lymphocytes % 19.8 % (21.2-54.2); Mean Corpuscular HGB Conc 33.3 GM/DL (32-36); Mean Corpuscular Volume 95.8 FL (87-102); Mean Platelet Volume 10.2 FL (9.6-12.0); Monocytes % 5.8 % (1.7-12.7); Neutrophils % 72.7 % (38.7-73.9); Platelet Count 171 T/CUMM (130-400); Red Blood Count 4.74 MC/CUMM (3.8-5.5); Red Cell Distribution Width 15.9 % (9.3-17.3); White Blood Count 10.4 T/CUMM (4-12)
[2019-01-04 04:58] LABS: Calcium 8.5 MG/DL (8.5-10.1); Osmolality,Calculated 278.5 MOS/KG (273-304)
[2019-01-04] MEDS ORDERED: FUROSEMIDE 40 MG/4 ML VIAL IV SCH (08:00)
[2019-01-04] MEDS: NICOTINE 14 MG/24 HR PATCH TRANSDERM SCH (08:26)
[2019-01-04] MEDS: carvediloL 6.25 MG TABLET PO SCH (08:30)
[2019-01-04] MEDS: POTASSIUM CHLORIDE 20 MEQ TABLET PO PRN ×2 (08:31→10:28)
[2019-01-04] MEDS: APIXABAN 5 MG TABLET PO SCH (08:31)
[2019-01-04] MEDS ORDERED: LISINOPRIL 2.5 MG TABLET PO SCH (09:00)
[2019-01-04] MEDS ORDERED: metOLazone 5 MG TABLET PO SCH (09:00)
[2019-01-04] MEDS ORDERED: PANTOPRAZOLE 40 MG TABLET PO SCH (09:00)
[2019-01-04] MEDS ORDERED: FOLIC ACID 1 MG TABLET PO SCH (09:00)
[2019-01-04] MEDS ORDERED: ASPIRIN EC 81 MG TABLET PO SCH (09:00)
[2019-01-04 12:43] VITALS: BP 112/64
[2019-01-04] MEDS ORDERED: POTASSIUM CHLORIDE 20 MEQ TABLET PO SCH (15:00)
== END 2019-01-04 12:40 | disposition home or self-care (01) ==
LOC: N.4E 16:59 → SUATTDRO 16:59 → INTOOBSV 16:59
PROVIDERS: ADMIT Internal Medicine; ATTEND Hospitalist

== ENCOUNTER 2019-01-27 16:50 | Inpatient (IN) ==
[2019-01-27] MEDS ORDERED: ONDANSETRON 4 MG/2 ML VIAL IV STA (17:39)
[2019-01-27] MEDS ORDERED: fentaNYL 100 MCG/2 ML VIAL IV STA (17:39)
[2019-01-27 18:24] LABS: INR 1.1; PT Patient Result 12.3 SECS (9.6-12.2); Partial Thromboplastin Time 31.2 SECS (20.8-36.0)
[2019-01-27 18:27] LABS: Troponin I 0.635 NG/ML (0.00-0.045)
[2019-01-27] MEDS ORDERED: NITROGLYCERIN 2% OINT 1 INCH/GM PACK TOP STA (18:49)
[2019-01-27] MEDS ORDERED: ONDANSETRON 4 MG/2 ML VIAL IV PRN (20:13)
[2019-01-27] MEDS ORDERED: FUROSEMIDE 40 MG/4 ML VIAL IV SCH (21:00)
[2019-01-27] MEDS: MORPHINE 4 MG/1 ML VIAL IV PRN (21:52)
[2019-01-27] MEDS: APIXABAN 5 MG TABLET PO SCH (23:51)
[2019-01-27] MEDS: POTASSIUM CHLORIDE 20 MEQ TABLET PO SCH (23:51)
[2019-01-27] MEDS: ATORVASTATIN 40 MG TABLET PO SCH (23:53)
[2019-01-27] MEDS: carvediloL 6.25 MG TABLET PO SCH (23:54)
[2019-01-28 01:34] LABS: Troponin I 6.11 NG/ML (0.00-0.045)
[2019-01-28 04:33] LABS: Basophils # 0.1 10*3/uL (0.0-0.2); Eosinophils # 0.1 10*3/uL (0.0-0.87); Eosinophils % 1.3 % (0.00-10.9); Hematocrit 46.2 VOL% (42.0-52.0); Hemoglobin 15.2 GM/DL (14.0-18.0); Immature Granulocytes % 0.3 %; Immature Granulocytes Absolute 0.02 #; Lymphocytes % 29.7 % (21.2-54.2); Mean Corpuscular HGB Conc 32.9 GM/DL (32-36); Mean Platelet Volume 11.1 FL (9.6-12.0); Monocytes % 6.4 % (1.7-12.7); Neutrophils % 61.3 % (38.7-73.9); Platelet Count 136 T/CUMM (130-400); Red Blood Count 4.81 MC/CUMM (3.8-5.5); White Blood Count 6.8 T/CUMM (4-12)
[2019-01-28 05:14] LABS: Albumin 3.3 G/DL (3.4-5.0); Bilirubin,Total 2.4 MG/DL (0.2-1.0); Calcium 9.4 MG/DL (8.5-10.1); Osmolality,Calculated 276.7 MOS/KG (273-304); Risk Ratio 3.14; Total Protein 7.3 G/DL (6.4-8.3); VLDL CHOLESTEROL 19.2 MG/DL
[2019-01-28] MEDS: MORPHINE 4 MG/1 ML VIAL IV PRN ×2 (06:37→20:05)
[2019-01-28 08:41] LABS: Troponin I 13.1 NG/ML (0.00-0.045)
[2019-01-28] MEDS: APIXABAN 5 MG TABLET PO SCH ×2 (09:11→20:47)
[2019-01-28] MEDS: FUROSEMIDE 40 MG/4 ML VIAL IV SCH (09:11)
[2019-01-28] MEDS: FOLIC ACID 1 MG TABLET PO SCH (09:11)
[2019-01-28] MEDS: PANTOPRAZOLE 40 MG TABLET PO SCH (09:11)
[2019-01-28] MEDS: THIAMINE 100 MG TABLET PO SCH (09:11)
[2019-01-28] MEDS: carvediloL 6.25 MG TABLET PO SCH ×2 (09:12→16:12)
[2019-01-28] MEDS: MULTIVITAMIN (CENTRUM) TABLET PO SCH (09:12)
[2019-01-28] MEDS: POTASSIUM CHLORIDE 20 MEQ TABLET PO SCH ×2 (09:12→20:48)
[2019-01-28] MEDS: ASPIRIN EC 81 MG TABLET PO SCH (09:12)
[2019-01-28] MEDS ORDERED: NITROGLYCERIN SL 0.4 MG TABLET SL PRN (09:29)
[2019-01-28] MEDS ORDERED: ALUM/MAG/SIMETH/LIDO VISC 1:1 30 ML BOTTLE PO ONE (09:32)
[2019-01-28] MEDS ORDERED: diphenhydrAMINE CAP 25 MG CAPSULE PO ONE (09:42)
[2019-01-28] MEDS ORDERED: DIAZEPAM 5 MG TABLET PO ONE (09:42)
[2019-01-28] MEDS ORDERED: LIDOCAINE 1% 20 ML VIAL ONE (09:46)
[2019-01-28] MEDS ORDERED: NITROGLYCERIN DRIP 50 MG/250 ML BOTTLE IV ONE (10:01)
[2019-01-28] MEDS ORDERED: VERAPAMIL 5 MG/2 ML VIAL ONE (10:01)
[2019-01-28] MEDS ORDERED: MIDAZOLAM 2 MG/2 ML VIAL ONE (10:01)
[2019-01-28] MEDS ORDERED: HYDROmorphone 2 MG/1 ML VIAL ONE (10:01)
[2019-01-28] MEDS: SACUBITRIL/VALSARTAN 49-51 MG TABLET PO SCH ×2 (10:33→20:48)
[2019-01-28] MEDS: metOLazone 5 MG TABLET PO SCH (10:34)
[2019-01-28] MEDS ORDERED: ENOXAPARIN 60 MG/0.6 ML SYRINGE ONE (10:43)
[2019-01-28] MEDS ORDERED: TICAGRELOR 90 MG TABLET ONE (10:52)
[2019-01-28 12:11] LABS: Barbiturates Screen,Urine Negative (Negative); Benzodiazepines Screen,Urine Positive (Negative); Cannabinoid Screen,Urine Negative (Negative); Opiate Screen,Urine Positive (Negative); Phencyclidine Screen,Urine Negative (Negative)
[2019-01-28 17:47] LABS: Troponin I 22.8 NG/ML (0.00-0.045)
[2019-01-28] MEDS: ATORVASTATIN 40 MG TABLET PO SCH (20:47)
[2019-01-28] MEDS: TICAGRELOR 90 MG TABLET PO SCH (20:47)
[2019-01-28] MEDS: LORazepam 2 MG/1 ML VIAL IV PRN (23:18)
[2019-01-29] MEDS: MORPHINE 4 MG/1 ML VIAL IV PRN (01:15)
[2019-01-29 04:45] LABS: Basophils # 0.1 10*3/uL (0.0-0.2); Basophils % 1.4 % (0.0-0.8); Eosinophils # 0.1 10*3/uL (0.0-0.87); Eosinophils % 1.6 % (0.00-10.9); Hematocrit 45.4 VOL% (42.0-52.0); Hemoglobin 14.9 GM/DL (14.0-18.0); Immature Granulocytes % 0.5 %; Immature Granulocytes Absolute 0.03 #; Lymphocytes # 2.3 10*3/uL (1.4-4.0); Lymphocytes % 36.2 % (21.2-54.2); Mean Corpuscular HGB Conc 32.8 GM/DL (32-36); Mean Corpuscular Volume 98.3 FL (87-102); Monocytes % 6.9 % (1.7-12.7); Neutrophils % 53.4 % (38.7-73.9); Platelet Count 118 T/CUMM (130-400); Red Blood Count 4.62 MC/CUMM (3.8-5.5); White Blood Count 6.4 T/CUMM (4-12)
[2019-01-29 05:04] LABS: Osmolality,Calculated 280.7 MOS/KG (273-304)
[2019-01-29] MEDS: metOLazone 5 MG TABLET PO SCH (11:11)
[2019-01-29] MEDS: APIXABAN 5 MG TABLET PO SCH ×2 (11:11→22:07)
[2019-01-29] MEDS: TICAGRELOR 90 MG TABLET PO SCH (11:11)
[2019-01-29] MEDS: ASPIRIN EC 81 MG TABLET PO SCH (11:11)
[2019-01-29] MEDS: THIAMINE 100 MG TABLET PO SCH (11:11)
[2019-01-29] MEDS: FOLIC ACID 1 MG TABLET PO SCH (11:11)
[2019-01-29] MEDS: PANTOPRAZOLE 40 MG TABLET PO SCH (11:11)
[2019-01-29] MEDS: MULTIVITAMIN (CENTRUM) TABLET PO SCH (11:11)
[2019-01-29] MEDS: POTASSIUM CHLORIDE 20 MEQ TABLET PO SCH ×2 (11:12→22:07)
[2019-01-29] MEDS ORDERED: carvediloL 6.25 MG TABLET PO SCH (11:18)
[2019-01-29 11:19] LABS: CKMB % 5.7 %
[2019-01-29] MEDS ORDERED: ACETAMINOPHEN 325 MG TABLET PO PRN (11:20)
[2019-01-29] MEDS: SACUBITRIL/VALSARTAN 49-51 MG TABLET PO SCH ×2 (11:26→22:12)
[2019-01-29] MEDS: SODIUM CHLORIDE 0.9% 1,000 ML IV SCH ×2 (11:26→22:17)
[2019-01-29] MEDS: carvediloL 3.125 MG TABLET PO SCH ×2 (11:26→16:35)
[2019-01-29] MEDS: FUROSEMIDE 40 MG/4 ML VIAL IV SCH (14:24)
[2019-01-29] MEDS: carvediloL 6.25 MG TABLET PO SCH (14:24)
[2019-01-29] MEDS: LORazepam 2 MG/1 ML VIAL IV PRN (18:28)
[2019-01-29] MEDS ORDERED: CLOPIDOGREL 300 MG TABLET PO ONE (19:00)
[2019-01-29] MEDS ORDERED: MORPHINE 4 MG/1 ML VIAL IV ONE (21:27)
[2019-01-29] MEDS ORDERED: FUROSEMIDE 20 MG/2 ML VIAL IV ONE (21:28)
[2019-01-29] MEDS: ATORVASTATIN 40 MG TABLET PO SCH (22:07)
[2019-01-30] MEDS: LORazepam 2 MG/1 ML VIAL IV PRN (01:27)
[2019-01-30 04:37] LABS: Basophils # 0.1 10*3/uL (0.0-0.2); Basophils % 1.3 % (0.0-0.8); Eosinophils # 0.1 10*3/uL (0.0-0.87); Eosinophils % 2.1 % (0.00-10.9); Hematocrit 45.1 VOL% (42.0-52.0); Hemoglobin 14.9 GM/DL (14.0-18.0); Immature Granulocytes % 0.5 %; Immature Granulocytes Absolute 0.03 #; Lymphocytes # 2.2 10*3/uL (1.4-4.0); Lymphocytes % 36.5 % (21.2-54.2); Mean Corpuscular Volume 96.2 FL (87-102); Mean Platelet Volume 11.1 FL (9.6-12.0); Monocytes % 6.2 % (1.7-12.7); Neutrophils % 53.4 % (38.7-73.9); Platelet Count 135 T/CUMM (130-400); Red Blood Count 4.69 MC/CUMM (3.8-5.5); Red Cell Distribution Width 14.9 % (9.3-17.3); White Blood Count 6.1 T/CUMM (4-12)
[2019-01-30 05:15] LABS: Calcium 8.8 MG/DL (8.5-10.1); Osmolality,Calculated 280.7 MOS/KG (273-304)
[2019-01-30] MEDS: ASPIRIN EC 81 MG TABLET PO SCH (08:57)
[2019-01-30] MEDS: POTASSIUM CHLORIDE 20 MEQ TABLET PO SCH (08:57)
[2019-01-30] MEDS: metOLazone 5 MG TABLET PO SCH (08:57)
[2019-01-30] MEDS: carvediloL 3.125 MG TABLET PO SCH (08:58)
[2019-01-30] MEDS: THIAMINE 100 MG TABLET PO SCH (08:58)
[2019-01-30] MEDS: PANTOPRAZOLE 40 MG TABLET PO SCH (08:59)
[2019-01-30] MEDS: MULTIVITAMIN (CENTRUM) TABLET PO SCH (08:59)
[2019-01-30] MEDS: FOLIC ACID 1 MG TABLET PO SCH (08:59)
[2019-01-30] MEDS: APIXABAN 5 MG TABLET PO SCH (08:59)
[2019-01-30] MEDS ORDERED: CLOPIDOGREL 75 MG TABLET PO SCH (09:00)
[2019-01-30 12:26] VITALS: BP 104/76
[2019-01-31] MEDS ORDERED: LISINOPRIL 2.5 MG TABLET PO SCH (09:00)
== END 2019-01-30 13:56 | disposition home or self-care (01) | DRG 250 ==
LOC: EDBD → EDUNIT# → N.EDINP 16:50 → N.ED 16:50 → N.TELES 20:48
PROVIDERS: ADMIT Internal Medicine; ATTEND Internal Medicine Cardiovascular Disease
PROC: CLCCHCL (ICD-10-PCS; 2019-01-28 10:15)

== ENCOUNTER 2019-01-31 16:30 | Inpatient (IN) ==
[2019-01-31] MEDS ORDERED: ONDANSETRON 4 MG/2 ML VIAL IV PRN (19:33)
[2019-01-31] MEDS ORDERED: SODIUM CHLORIDE 0.9% 1,000 ML IV SCH (20:00)
[2019-01-31] MEDS: MORPHINE 4 MG/1 ML VIAL IV PRN ×2 (20:06→23:33)
[2019-01-31] MEDS: SODIUM CHLORIDE 0.9% 1,000 ML IV SCH (20:25)
[2019-01-31 21:34] LABS: Blood Urea Nitrogen 27 MG/DL (7-18); Calcium 9.1 MG/DL (8.5-10.1); Glucose 126 MG/DL (74-106); Osmolality,Calculated 276.1 MOS/KG (273-304)
[2019-01-31 21:35] LABS: Estimated Glom Filtration Rate 0 ML/MIN
[2019-01-31] MEDS: APIXABAN 5 MG TABLET PO SCH (21:44)
[2019-01-31] MEDS: ATORVASTATIN 40 MG TABLET PO SCH (21:44)
[2019-02-01 02:14] LABS: Basophils % 0.1 % (0.0-0.8); Hematocrit 46.1 VOL% (42.0-52.0); Hemoglobin 15.1 GM/DL (14.0-18.0); Immature Granulocytes % 0.3 %; Immature Granulocytes Absolute 0.02 #; Lymphocytes # 0.5 10*3/uL (1.4-4.0); Lymphocytes % 7.6 % (21.2-54.2); Mean Corpuscular HGB Conc 32.8 GM/DL (32-36); Mean Corpuscular Volume 96.8 FL (87-102); Mean Platelet Volume 10.8 FL (9.6-12.0); Monocytes % 3.6 % (1.7-12.7); Neutrophils % 88.4 % (38.7-73.9); Platelet Count 146 T/CUMM (130-400); Red Blood Count 4.76 MC/CUMM (3.8-5.5); White Blood Count 6.7 T/CUMM (4-12)
[2019-02-01 02:33] LABS: Albumin 3.6 G/DL (3.4-5.0); Bilirubin,Total 1.3 MG/DL (0.2-1.0); Calcium 9.4 MG/DL (8.5-10.1); Osmolality,Calculated 279.7 MOS/KG (273-304); Total Protein 7.4 G/DL (6.4-8.3)
[2019-02-01] MEDS: SODIUM CHLORIDE 0.9% 1,000 ML IV SCH ×2 (07:58→08:36)
[2019-02-01] MEDS: MORPHINE 4 MG/1 ML VIAL IV PRN ×3 (07:58→17:02)
[2019-02-01] MEDS: carvediloL 3.125 MG TABLET PO SCH ×3 (08:33→16:52)
[2019-02-01] MEDS: MULTIVITAMIN (CENTRUM) TABLET PO SCH ×2 (08:33→11:41)
[2019-02-01] MEDS: ASPIRIN EC 81 MG TABLET PO SCH ×2 (08:33→11:41)
[2019-02-01] MEDS: CLOPIDOGREL 75 MG TABLET PO SCH ×2 (08:34→11:41)
[2019-02-01] MEDS: PANTOPRAZOLE 40 MG TABLET PO SCH ×2 (08:34→11:41)
[2019-02-01] MEDS: APIXABAN 5 MG TABLET PO SCH ×3 (08:34→21:48)
[2019-02-01] MEDS: FOLIC ACID 1 MG TABLET PO SCH (08:34)
[2019-02-01] MEDS: THIAMINE 100 MG TABLET PO SCH ×2 (08:35→11:41)
[2019-02-01] MEDS: ATORVASTATIN 40 MG TABLET PO SCH (21:48)
[2019-02-02] MEDS: MORPHINE 4 MG/1 ML VIAL IV PRN ×4 (00:20→21:13)
[2019-02-02 06:06] LABS: Basophils # 0.1 10*3/uL (0.0-0.2); Eosinophils # 0.1 10*3/uL (0.0-0.87); Eosinophils % 0.7 % (0.00-10.9); Hematocrit 41.5 VOL% (42.0-52.0); Hemoglobin 13.5 GM/DL (14.0-18.0); Immature Granulocytes % 0.4 %; Immature Granulocytes Absolute 0.03 #; Lymphocytes # 2.6 10*3/uL (1.4-4.0); Lymphocytes % 38.3 % (21.2-54.2); Mean Corpuscular HGB Conc 32.5 GM/DL (32-36); Mean Corpuscular Volume 98.1 FL (87-102); Mean Platelet Volume 11.1 FL (9.6-12.0); Monocytes % 9.7 % (1.7-12.7); NRBC # 0.04 10*3/uL; Neutrophils % 49.9 % (38.7-73.9); Platelet Count 148 T/CUMM (130-400); Red Blood Count 4.23 MC/CUMM (3.8-5.5); Red Cell Distribution Width 15.1 % (9.3-17.3); White Blood Count 6.7 T/CUMM (4-12)
[2019-02-02 06:49] LABS: Calcium 8.8 MG/DL (8.5-10.1); Osmolality,Calculated 273.1 MOS/KG (273-304)
[2019-02-02] MEDS: SODIUM CHLORIDE 0.9% 1,000 ML IV SCH (07:06)
[2019-02-02] MEDS ORDERED: ACETYLCYSTEINE 600 MG CAPSULE PO ONE (09:08)
[2019-02-02] MEDS: MULTIVITAMIN (CENTRUM) TABLET PO SCH (09:14)
[2019-02-02] MEDS: APIXABAN 5 MG TABLET PO SCH ×2 (09:14→21:03)
[2019-02-02] MEDS: carvediloL 3.125 MG TABLET PO SCH ×2 (09:14→16:34)
[2019-02-02] MEDS ORDERED: FUROSEMIDE 40 MG TABLET PO SCH (09:14)
[2019-02-02] MEDS: PANTOPRAZOLE 40 MG TABLET PO SCH (09:15)
[2019-02-02] MEDS: CLOPIDOGREL 75 MG TABLET PO SCH (09:15)
[2019-02-02] MEDS: THIAMINE 100 MG TABLET PO SCH (09:15)
[2019-02-02] MEDS: FOLIC ACID 1 MG TABLET PO SCH (09:15)
[2019-02-02] MEDS ORDERED: FUROSEMIDE 40 MG/4 ML VIAL IV ONE (09:19)
[2019-02-02] MEDS: SODIUM BICARB INJ 50 MEQ in SODIUM CHLORIDE 0.45% 1,000 ML IV SCH (10:53)
[2019-02-02] MEDS: ATORVASTATIN 40 MG TABLET PO SCH (21:03)
[2019-02-02] MEDS: ACETYLCYSTEINE 600 MG CAPSULE PO SCH (21:04)
[2019-02-03] MEDS: SODIUM BICARB INJ 50 MEQ in SODIUM CHLORIDE 0.45% 1,000 ML IV SCH (06:30)
[2019-02-03 06:33] LABS: Basophils # 0.1 10*3/uL (0.0-0.2); Eosinophils # 0.1 10*3/uL (0.0-0.87); Eosinophils % 1.3 % (0.00-10.9); Hematocrit 41.7 VOL% (42.0-52.0); Immature Granulocytes % 0.2 %; Immature Granulocytes Absolute 0.01 #; Lymphocytes # 1.9 10*3/uL (1.4-4.0); Lymphocytes % 30.8 % (21.2-54.2); Mean Corpuscular HGB Conc 33.6 GM/DL (32-36); Mean Corpuscular Volume 96.1 FL (87-102); Mean Platelet Volume 10.6 FL (9.6-12.0); Monocytes % 8.4 % (1.7-12.7); NRBC # 0.03 10*3/uL; Neutrophils % 58.3 % (38.7-73.9); Platelet Count 125 T/CUMM (130-400); Red Blood Count 4.34 MC/CUMM (3.8-5.5); Red Cell Distribution Width 14.6 % (9.3-17.3); White Blood Count 6.1 T/CUMM (4-12)
[2019-02-03 06:55] LABS: Calcium 8.9 MG/DL (8.5-10.1); Osmolality,Calculated 279.7 MOS/KG (273-304)
[2019-02-03] MEDS: MORPHINE 4 MG/1 ML VIAL IV PRN ×4 (07:56→21:40)
[2019-02-03] MEDS: MULTIVITAMIN (CENTRUM) TABLET PO SCH (08:05)
[2019-02-03] MEDS: FUROSEMIDE 40 MG TABLET PO SCH (08:05)
[2019-02-03] MEDS: CLOPIDOGREL 75 MG TABLET PO SCH (08:05)
[2019-02-03] MEDS: carvediloL 3.125 MG TABLET PO SCH ×2 (08:05→17:57)
[2019-02-03] MEDS: PANTOPRAZOLE 40 MG TABLET PO SCH (08:05)
[2019-02-03] MEDS: ACETYLCYSTEINE 600 MG CAPSULE PO SCH (08:05)
[2019-02-03] MEDS: APIXABAN 5 MG TABLET PO SCH ×2 (08:05→20:55)
[2019-02-03] MEDS: FOLIC ACID 1 MG TABLET PO SCH (08:05)
[2019-02-03] MEDS: THIAMINE 100 MG TABLET PO SCH (08:06)
[2019-02-03] MEDS: NITROGLYCERIN SL 0.4 MG TABLET SL PRN ×2 (08:39→08:44)
[2019-02-03] MEDS ORDERED: MAGNESIUM SULF RIDER 4 GM in PREMIX 1 EACH IV PRN (08:55)
[2019-02-03] MEDS ORDERED: POTASSIUM CHLORIDE RIDER 10 MEQ in PREMIX 1 EACH IV PRN ×2 (08:55→10:30)
[2019-02-03] MEDS ORDERED: MAGNESIUM SULF RIDER 2 GM in PREMIX 1 EACH IV PRN (08:55)
[2019-02-03] MEDS ORDERED: MORPHINE 4 MG/1 ML VIAL IV ONE (08:59)
[2019-02-03] MEDS: POTASSIUM CHLORIDE 20 MEQ TABLET PO PRN ×4 (12:00→22:18)
[2019-02-03] MEDS: ATORVASTATIN 40 MG TABLET PO SCH (20:55)
[2019-02-04 04:59] LABS: Basophils # 0.1 10*3/uL (0.0-0.2); Eosinophils # 0.1 10*3/uL (0.0-0.87); Eosinophils % 1.5 % (0.00-10.9); Hematocrit 42.6 VOL% (42.0-52.0); Hemoglobin 13.9 GM/DL (14.0-18.0); Immature Granulocytes % 0.2 %; Immature Granulocytes Absolute 0.01 #; Lymphocytes # 2.2 10*3/uL (1.4-4.0); Lymphocytes % 37.5 % (21.2-54.2); Mean Corpuscular HGB Conc 32.6 GM/DL (32-36); Mean Corpuscular Volume 95.7 FL (87-102); Monocytes % 6.9 % (1.7-12.7); Neutrophils % 52.9 % (38.7-73.9); Platelet Count 131 T/CUMM (130-400); Red Blood Count 4.45 MC/CUMM (3.8-5.5); Red Cell Distribution Width 14.7 % (9.3-17.3); White Blood Count 5.8 T/CUMM (4-12)
[2019-02-04 05:19] LABS: Calcium 9.1 MG/DL (8.5-10.1)
[2019-02-04] MEDS ORDERED: LACTULOSE 20 GM/30 ML UDCUP PO PRN (05:36)
[2019-02-04] MEDS: POTASSIUM CHLORIDE 20 MEQ TABLET PO PRN ×4 (05:50→10:20)
[2019-02-04 07:53] VITALS: BP 122/80
[2019-02-04] MEDS: FOLIC ACID 1 MG TABLET PO SCH (08:37)
[2019-02-04] MEDS: FUROSEMIDE 40 MG TABLET PO SCH (08:38)
[2019-02-04] MEDS: MULTIVITAMIN (CENTRUM) TABLET PO SCH (08:38)
[2019-02-04] MEDS: THIAMINE 100 MG TABLET PO SCH (08:38)
[2019-02-04] MEDS: APIXABAN 5 MG TABLET PO SCH (08:38)
[2019-02-04] MEDS: carvediloL 3.125 MG TABLET PO SCH (08:38)
[2019-02-04] MEDS: CLOPIDOGREL 75 MG TABLET PO SCH (08:38)
[2019-02-04] MEDS: PANTOPRAZOLE 40 MG TABLET PO SCH (08:38)
[2019-02-04] MEDS: MORPHINE 4 MG/1 ML VIAL IV PRN (08:39)
[2019-02-04] MEDS ORDERED: POTASSIUM BICARB EFFERVESCENT 25 MEQ TABLET PO ONE (09:18)
== END 2019-02-04 12:50 | disposition home or self-care (01) | DRG 391 ==
LOC: N.TELEN
PROVIDERS: ADMIT Internal Medicine; ATTEND Internal Medicine

== ENCOUNTER 2019-02-06 03:02 | Observation (INO) ==
[2019-02-06] MEDS ORDERED: MORPHINE 4 MG/1 ML VIAL IV PRN (05:10)
[2019-02-06] MEDS ORDERED: ONDANSETRON 4 MG/2 ML VIAL IV PRN (05:10)
[2019-02-06] MEDS ORDERED: ENOXAPARIN 40 MG/0.4 ML SYRINGE SUBCUT SCH (05:30)
[2019-02-06] MEDS: NITROGLYCERIN 2% OINT 1 INCH/GM PACK TOP SCH ×3 (06:39→17:49)
[2019-02-06] MEDS: MORPHINE 4 MG/1 ML VIAL IV PRN ×3 (09:12→22:11)
[2019-02-06] MEDS ORDERED: NITROGLYCERIN SL 0.4 MG TABLET SL PRN (10:49)
[2019-02-06] MEDS ORDERED: metOLazone 5 MG TABLET PO SCH (11:00)
[2019-02-06] MEDS ORDERED: ASPIRIN EC 81 MG TABLET PO SCH (11:00)
[2019-02-06 11:25] LABS: Basophils # 0.1 10*3/uL (0.0-0.2); Basophils % 0.8 % (0.0-0.8); Eosinophils # 0.1 10*3/uL (0.0-0.87); Hematocrit 44.8 VOL% (42.0-52.0); Hemoglobin 14.7 GM/DL (14.0-18.0); Immature Granulocytes % 0.2 %; Immature Granulocytes Absolute 0.01 #; Lymphocytes # 1.7 10*3/uL (1.4-4.0); Lymphocytes % 28.1 % (21.2-54.2); Mean Corpuscular HGB Conc 32.8 GM/DL (32-36); Mean Corpuscular Volume 96.8 FL (87-102); Mean Platelet Volume 11.3 FL (9.6-12.0); Monocytes % 7.6 % (1.7-12.7); NRBC # 0.02 10*3/uL; Neutrophils % 62.3 % (38.7-73.9); Platelet Count 139 T/CUMM (130-400); Red Blood Count 4.63 MC/CUMM (3.8-5.5); Red Cell Distribution Width 15.1 % (9.3-17.3); White Blood Count 6.2 T/CUMM (4-12)
[2019-02-06 12:48] LABS: Osmolality,Calculated 273.8 MOS/KG (273-304)
[2019-02-06] MEDS: CLOPIDOGREL 75 MG TABLET PO SCH (13:23)
[2019-02-06] MEDS: FUROSEMIDE 40 MG TABLET PO SCH ×2 (13:23→17:48)
[2019-02-06] MEDS: POTASSIUM CHLORIDE 20 MEQ TABLET PO SCH (13:23)
[2019-02-06 16:55] LABS: Apearance,Urine CLEAR (Clear); Bilirubin,Urine Negative (Negative); Blood, Urine Negative (Negative); Glucose,Urine (UA) Negative (Negative); Hyaline Casts,Urine 1 /LPF (0-3); Ketones,Urine Negative (Negative); Nitrite,Urine Negative (Negative); Protein,Urine Negative; RBC,Urine <1 /HPF (0-4); Urine Color Yellow (Yellow); Urine Specific Gravity 1.005 (1.001-1.035); Urine Urobilinogen < 2.0 EU/DL (0.2-1.0); WBC,Urine 1 /HPF (0-6)
[2019-02-06] MEDS: CARVEDILOL 3.125 MG TABLET PO SCH (17:49)
[2019-02-06] MEDS ORDERED: ATORVASTATIN 40 MG TABLET PO SCH (21:00)
[2019-02-06] MEDS: HYOSCYAMINE 0.125 MG TABLET PO SCH (21:47)
[2019-02-07] MEDS: NITROGLYCERIN 2% OINT 1 INCH/GM PACK TOP SCH ×3 (00:36→13:10)
[2019-02-07] MEDS: HYOSCYAMINE 0.125 MG TABLET PO SCH ×3 (01:15→13:10)
[2019-02-07 01:59] LABS: Basophils # 0.1 10*3/uL (0.0-0.2); Basophils % 0.9 % (0.0-0.8); Eosinophils # 0.1 10*3/uL (0.0-0.87); Eosinophils % 1.8 % (0.00-10.9); Hemoglobin 13.9 GM/DL (14.0-18.0); Immature Granulocytes % 0.4 %; Immature Granulocytes Absolute 0.02 #; Lymphocytes # 1.9 10*3/uL (1.4-4.0); Lymphocytes % 33.3 % (21.2-54.2); Mean Corpuscular HGB Conc 33.1 GM/DL (32-36); Mean Corpuscular Volume 95.2 FL (87-102); Mean Platelet Volume 10.7 FL (9.6-12.0); Monocytes % 6.2 % (1.7-12.7); Neutrophils % 57.4 % (38.7-73.9); Platelet Count 139 T/CUMM (130-400); Red Blood Count 4.41 MC/CUMM (3.8-5.5); Red Cell Distribution Width 14.9 % (9.3-17.3); White Blood Count 5.7 T/CUMM (4-12)
[2019-02-07 02:33] LABS: Calcium 9.1 MG/DL (8.5-10.1); Osmolality,Calculated 274.8 MOS/KG (273-304)
[2019-02-07] MEDS: MORPHINE 4 MG/1 ML VIAL IV PRN ×2 (06:27→13:10)
[2019-02-07] MEDS ORDERED: PANTOPRAZOLE 40 MG TABLET PO SCH (07:00)
[2019-02-07] MEDS: FUROSEMIDE 40 MG TABLET PO SCH (08:25)
[2019-02-07] MEDS: CARVEDILOL 3.125 MG TABLET PO SCH (08:25)
[2019-02-07] MEDS: POTASSIUM CHLORIDE 20 MEQ TABLET PO SCH (08:25)
[2019-02-07] MEDS: CLOPIDOGREL 75 MG TABLET PO SCH (08:25)
[2019-02-07 15:51] VITALS: BP 110/64
== END 2019-02-07 15:55 | disposition home or self-care (01) ==
LOC: N.TELEN → SUATTDRO 05:05
PROVIDERS: ADMIT Internal Medicine; ATTEND Family Medicine

== ENCOUNTER 2019-03-21 23:53 | Inpatient (IN) ==
[2019-03-22] MEDS ORDERED: ONDANSETRON 4 MG/2 ML VIAL IV PRN (03:09)
[2019-03-22] MEDS ORDERED: ACETAMINOPHEN 325 MG TABLET PO PRN (03:09)
[2019-03-22] MEDS ORDERED: DOCUSATE SODIUM 100 MG CAPSULE PO PRN (03:09)
[2019-03-22] MEDS ORDERED: ALUM/MAG/SIMETH/LIDO VISC 1:1 30 ML BOTTLE PO ONE (03:09)
[2019-03-22] MEDS ORDERED: NITROGLYCERIN SL 0.4 MG TABLET SL PRN (03:12)
[2019-03-22] MEDS ORDERED: PANTOPRAZOLE 40 MG VIAL IV ONE (03:15)
[2019-03-22] MEDS: MORPHINE 4 MG/1 ML VIAL IV PRN ×4 (05:43→22:03)
[2019-03-22 06:20] LABS: Basophils # 0.1 10*3/uL (0.0-0.2); Eosinophils % 0.4 % (0.00-10.9); Hematocrit 43.1 VOL% (42.0-52.0); Hemoglobin 14.3 GM/DL (14.0-18.0); Immature Granulocytes % 0.4 %; Immature Granulocytes Absolute 0.02 #; Lymphocytes # 1.4 10*3/uL (1.4-4.0); Lymphocytes % 25.8 % (21.2-54.2); Mean Corpuscular HGB Conc 33.2 GM/DL (32-36); Mean Corpuscular Volume 97.1 FL (87-102); Mean Platelet Volume 11.7 FL (9.6-12.0); Monocytes % 5.9 % (1.7-12.7); NRBC # 0.04 10*3/uL; Neutrophils % 66.5 % (38.7-73.9); Platelet Count 118 T/CUMM (130-400); Red Blood Count 4.44 MC/CUMM (3.8-5.5); Red Cell Distribution Width 18.7 % (9.3-17.3); White Blood Count 5.2 T/CUMM (4-12)
[2019-03-22 06:50] LABS: Albumin 3.1 G/DL (3.4-5.0); Bilirubin,Total 3.6 MG/DL (0.2-1.0); Osmolality,Calculated 282.1 MOS/KG (273-304); Thyroid Stimulating Hormone 3.37 uIU/ml (0.358-3.74); Total Protein 6.8 G/DL (6.4-8.3)
[2019-03-22] MEDS ORDERED: ATORVASTATIN 40 MG TABLET PO SCH (09:00)
[2019-03-22] MEDS ORDERED: APIXABAN 5 MG TABLET PO SCH (09:00)
[2019-03-22] MEDS: PANTOPRAZOLE 40 MG TABLET PO SCH (09:22)
[2019-03-22] MEDS: FUROSEMIDE 40 MG TABLET PO SCH ×2 (09:22→16:35)
[2019-03-22] MEDS: carvediloL 6.25 MG TABLET PO SCH ×2 (09:22→16:44)
[2019-03-22] MEDS: FOLIC ACID 1 MG TABLET PO SCH (09:22)
[2019-03-22] MEDS ORDERED: FUROSEMIDE 40 MG/4 ML VIAL IV ONE (16:09)
[2019-03-23 05:31] LABS: Basophils # 0.1 10*3/uL (0.0-0.2); Basophils % 1.3 % (0.0-0.8); Eosinophils # 0.1 10*3/uL (0.0-0.87); Eosinophils % 1.1 % (0.00-10.9); Hematocrit 41.9 VOL% (42.0-52.0); Hemoglobin 14.1 GM/DL (14.0-18.0); Immature Granulocytes % 0.2 %; Immature Granulocytes Absolute 0.01 #; Lymphocytes # 1.9 10*3/uL (1.4-4.0); Lymphocytes % 41.5 % (21.2-54.2); Mean Corpuscular HGB Conc 33.7 GM/DL (32-36); Mean Corpuscular Volume 97.2 FL (87-102); Mean Platelet Volume 11.9 FL (9.6-12.0); Monocytes % 7.5 % (1.7-12.7); NRBC # 0.05 10*3/uL; Neutrophils % 48.4 % (38.7-73.9); Platelet Count 101 T/CUMM (130-400); Red Blood Count 4.31 MC/CUMM (3.8-5.5); Red Cell Distribution Width 18.7 % (9.3-17.3); White Blood Count 4.7 T/CUMM (4-12)
[2019-03-23 05:51] LABS: Calcium 9.2 MG/DL (8.5-10.1); Osmolality,Calculated 275.8 MOS/KG (273-304)
[2019-03-23] MEDS: MORPHINE 4 MG/1 ML VIAL IV PRN ×3 (07:43→21:56)
[2019-03-23] MEDS: FOLIC ACID 1 MG TABLET PO SCH ×2 (07:43→08:33)
[2019-03-23] MEDS: carvediloL 6.25 MG TABLET PO SCH ×3 (07:43→16:09)
[2019-03-23] MEDS: PANTOPRAZOLE 40 MG TABLET PO SCH ×2 (07:43→08:33)
[2019-03-23] MEDS: FUROSEMIDE 40 MG TABLET PO SCH ×2 (07:43→15:14)
[2019-03-23] MEDS ORDERED: NICOTINE 21 MG/24 HR PATCH TRANSDERM PRN (12:02)
[2019-03-23] MEDS: THIAMINE 100 MG TABLET PO SCH (12:22)
[2019-03-23] MEDS: MULTIVITAMIN (CENTRUM) TABLET PO SCH (12:22)
[2019-03-23] MEDS ORDERED: PIPERACILLIN/TAZOBACTAM 2,250 MG in SODIUM CHLORIDE 0.9% 100 ML IV SCH (13:00)
[2019-03-23] MEDS: PIPERACILLIN/TAZOBACTAM 3,375 MG in SODIUM CHLORIDE 0.9% 100 ML IV SCH ×2 (15:14→21:59)
[2019-03-23 23:30] LABS: Apearance,Urine CLEAR (Clear); Bilirubin,Urine Negative (Negative); Blood, Urine Negative (Negative); Glucose,Urine (UA) Negative (Negative); Ketones,Urine Negative (Negative); Mucus,Urine Occasional /LPF (Occasional); Nitrite,Urine Negative (Negative); Protein,Urine Negative; RBC,Urine 3 /HPF (0-4); Squamous Epithelial Cell,Urine Occasional /HPF (0-10); Urine Color Amber (Yellow); Urine Specific Gravity 1.024 (1.001-1.035); WBC,Urine 2 /HPF (0-6)
[2019-03-23 23:35] LABS: Barbiturates Screen,Urine Negative (Negative); Benzodiazepines Screen,Urine Positive (Negative); Cannabinoid Screen,Urine Negative (Negative); Opiate Screen,Urine Positive (Negative); Phencyclidine Screen,Urine Negative (Negative)
[2019-03-24] MEDS: MORPHINE 4 MG/1 ML VIAL IV PRN ×2 (05:01→13:28)
[2019-03-24] MEDS: PIPERACILLIN/TAZOBACTAM 3,375 MG in SODIUM CHLORIDE 0.9% 100 ML IV SCH ×3 (05:01→21:07)
[2019-03-24 05:07] LABS: Basophils # 0.1 10*3/uL (0.0-0.2); Basophils % 1.2 % (0.0-0.8); Eosinophils # 0.1 10*3/uL (0.0-0.87); Eosinophils % 1.2 % (0.00-10.9); Hematocrit 44.3 VOL% (42.0-52.0); Hemoglobin 14.7 GM/DL (14.0-18.0); Immature Granulocytes % 0.2 %; Immature Granulocytes Absolute 0.01 #; Lymphocytes # 1.8 10*3/uL (1.4-4.0); Lymphocytes % 36.1 % (21.2-54.2); Mean Corpuscular HGB Conc 33.2 GM/DL (32-36); Mean Corpuscular Volume 97.1 FL (87-102); Mean Platelet Volume 12.1 FL (9.6-12.0); Monocytes % 8.7 % (1.7-12.7); NRBC # 0.13 10*3/uL; Neutrophils % 52.6 % (38.7-73.9); Platelet Count 94 T/CUMM (130-400); Red Blood Count 4.56 MC/CUMM (3.8-5.5); Red Cell Distribution Width 18.5 % (9.3-17.3)
[2019-03-24 05:29] LABS: Calcium 8.9 MG/DL (8.5-10.1); Osmolality,Calculated 277.8 MOS/KG (273-304)
[2019-03-24 05:32] LABS: Risk Ratio 3.04; VLDL CHOLESTEROL 12.4 MG/DL
[2019-03-24 05:53] LABS: Anisocytosis 2+; Band Neutrophils 3 % (0-10); Lymphocytes 46 % (20-55); Macrocytosis 1+; Nucleated Red Blood Cells 1 (0-5); Platelet Estimate Decreased; Segmented Neutrophils 41 % (50-85); Total Cells Counted 100
[2019-03-24] MEDS: carvediloL 6.25 MG TABLET PO SCH ×2 (09:46→16:46)
[2019-03-24] MEDS: FOLIC ACID 1 MG TABLET PO SCH (09:46)
[2019-03-24] MEDS: FUROSEMIDE 40 MG TABLET PO SCH ×2 (09:46→16:46)
[2019-03-24] MEDS: THIAMINE 100 MG TABLET PO SCH (09:46)
[2019-03-24] MEDS: MULTIVITAMIN (CENTRUM) TABLET PO SCH (09:46)
[2019-03-24] MEDS: PANTOPRAZOLE 40 MG TABLET PO SCH (09:47)
[2019-03-24] MEDS: ALPRAZolam 0.25 MG TABLET PO PRN (16:46)
[2019-03-24] MEDS: LORazepam 2 MG/1 ML VIAL IV PRN (18:38)
[2019-03-25] MEDS: PIPERACILLIN/TAZOBACTAM 3,375 MG in SODIUM CHLORIDE 0.9% 100 ML IV SCH ×3 (05:28→20:07)
[2019-03-25] MEDS: ALPRAZolam 0.25 MG TABLET PO PRN ×2 (05:33→17:31)
[2019-03-25 06:18] LABS: Basophils # 0.1 10*3/uL (0.0-0.2); Basophils % 1.2 % (0.0-0.8); Eosinophils % 0.8 % (0.00-10.9); Hematocrit 41.6 VOL% (42.0-52.0); Immature Granulocytes % 0.4 %; Immature Granulocytes Absolute 0.02 #; Lymphocytes # 1.4 10*3/uL (1.4-4.0); Lymphocytes % 26.9 % (21.2-54.2); Mean Corpuscular HGB Conc 33.7 GM/DL (32-36); Mean Corpuscular Volume 96.3 FL (87-102); Mean Platelet Volume 13.1 FL (9.6-12.0); Monocytes % 10.4 % (1.7-12.7); NRBC # 0.08 10*3/uL; Neutrophils % 60.3 % (38.7-73.9); Platelet Count 89 T/CUMM (130-400); Red Blood Count 4.32 MC/CUMM (3.8-5.5); Red Cell Distribution Width 18.3 % (9.3-17.3); White Blood Count 5.2 T/CUMM (4-12)
[2019-03-25 06:42] LABS: Osmolality,Calculated 278.8 MOS/KG (273-304)
[2019-03-25 06:53] LABS: Hypochromasia 1+
[2019-03-25 06:54] LABS: Macrocytosis 1+; Platelet Estimate Decreased
[2019-03-25] MEDS: carvediloL 6.25 MG TABLET PO SCH ×2 (08:53→16:47)
[2019-03-25] MEDS: MULTIVITAMIN (CENTRUM) TABLET PO SCH (08:53)
[2019-03-25] MEDS: FUROSEMIDE 40 MG TABLET PO SCH ×2 (08:53→15:22)
[2019-03-25] MEDS: PANTOPRAZOLE 40 MG TABLET PO SCH (08:53)
[2019-03-25] MEDS: FOLIC ACID 1 MG TABLET PO SCH (08:53)
[2019-03-25] MEDS: THIAMINE 100 MG TABLET PO SCH (08:53)
[2019-03-25] MEDS: LORazepam 2 MG/1 ML VIAL IV PRN (09:05)
[2019-03-26 05:35] LABS: Basophils # 0.1 10*3/uL (0.0-0.2); Eosinophils # 0.1 10*3/uL (0.0-0.87); Eosinophils % 1.6 % (0.00-10.9); Hematocrit 42.1 VOL% (42.0-52.0); Hemoglobin 14.4 GM/DL (14.0-18.0); Immature Granulocytes % 0.2 %; Immature Granulocytes Absolute 0.01 #; Lymphocytes # 1.5 10*3/uL (1.4-4.0); Lymphocytes % 30.1 % (21.2-54.2); Mean Corpuscular HGB Conc 34.2 GM/DL (32-36); NRBC # 0.04 10*3/uL; Neutrophils % 57.1 % (38.7-73.9); Platelet Count 95 T/CUMM (130-400); Red Blood Count 4.43 MC/CUMM (3.8-5.5); Red Cell Distribution Width 18.6 % (9.3-17.3); White Blood Count 5.1 T/CUMM (4-12)
[2019-03-26] MEDS: PIPERACILLIN/TAZOBACTAM 3,375 MG in SODIUM CHLORIDE 0.9% 100 ML IV SCH ×3 (05:44→20:43)
[2019-03-26 05:58] LABS: Calcium 8.8 MG/DL (8.5-10.1)
[2019-03-26 06:05] LABS: Eosinophils 4 % (0-10); Lymphocytes 38 % (20-55); Nucleated Red Blood Cells 2 (0-5); Segmented Neutrophils 50 % (50-85); Total Cells Counted 100
[2019-03-26 06:06] LABS: Atypical Lymphocytes Few; Hypochromasia Slight
[2019-03-26 06:07] LABS: Macrocytosis 1+; Platelet Estimate Decreased
[2019-03-26] MEDS: THIAMINE 100 MG TABLET PO SCH (13:13)
[2019-03-26] MEDS: MULTIVITAMIN (CENTRUM) TABLET PO SCH (13:13)
[2019-03-26] MEDS: FUROSEMIDE 40 MG TABLET PO SCH ×2 (13:13→16:32)
[2019-03-26] MEDS: FOLIC ACID 1 MG TABLET PO SCH (13:13)
[2019-03-26] MEDS: PANTOPRAZOLE 40 MG TABLET PO SCH (13:13)
[2019-03-26] MEDS: carvediloL 6.25 MG TABLET PO SCH ×2 (13:13→16:32)
[2019-03-26] MEDS ORDERED: FUROSEMIDE 20 MG TABLET PO ONE (13:45)
[2019-03-26] MEDS: traMADol 50 MG TABLET PO PRN ×2 (16:32→23:26)
[2019-03-26] MEDS: METOCLOPRAMIDE 10 MG/2 ML VIAL IV SCH (17:35)
[2019-03-26] MEDS: ALPRAZolam 0.25 MG TABLET PO PRN (18:11)
[2019-03-27] MEDS: METOCLOPRAMIDE 10 MG/2 ML VIAL IV SCH ×2 (00:59→06:22)
[2019-03-27] MEDS ORDERED: HYDROmorphone 2 MG/1 ML VIAL IV ONE (01:10)
[2019-03-27 02:15] LABS: Basophils # 0.1 10*3/uL (0.0-0.2); Basophils % 1.2 % (0.0-0.8); Eosinophils # 0.1 10*3/uL (0.0-0.87); Eosinophils % 1.9 % (0.00-10.9); Hematocrit 44.4 VOL% (42.0-52.0); Hemoglobin 14.8 GM/DL (14.0-18.0); Immature Granulocytes % 0.4 %; Immature Granulocytes Absolute 0.02 #; Lymphocytes # 1.6 10*3/uL (1.4-4.0); Lymphocytes % 31.8 % (21.2-54.2); Mean Corpuscular HGB Conc 33.3 GM/DL (32-36); Mean Corpuscular Volume 98.9 FL (87-102); Mean Platelet Volume 12.7 FL (9.6-12.0); Monocytes % 10.1 % (1.7-12.7); NRBC # 0.08 10*3/uL; Neutrophils % 54.6 % (38.7-73.9); Platelet Count 86 T/CUMM (130-400); Red Blood Count 4.49 MC/CUMM (3.8-5.5); Red Cell Distribution Width 19.7 % (9.3-17.3); White Blood Count 5.1 T/CUMM (4-12)
[2019-03-27 02:34] LABS: Calcium 8.8 MG/DL (8.5-10.1); Osmolality,Calculated 276.1 MOS/KG (273-304)
[2019-03-27 02:53] LABS: Anisocytosis 1+; Eosinophils 1 % (0-10); Lymphocytes 27 % (20-55); Nucleated Red Blood Cells 1 (0-5); Platelet Estimate Decreased; Segmented Neutrophils 64 % (50-85); Target Cells 1+; Total Cells Counted 100
[2019-03-27] MEDS: PIPERACILLIN/TAZOBACTAM 3,375 MG in SODIUM CHLORIDE 0.9% 100 ML IV SCH (06:22)
[2019-03-27] MEDS: THIAMINE 100 MG TABLET PO SCH (08:52)
[2019-03-27] MEDS: FOLIC ACID 1 MG TABLET PO SCH (08:52)
[2019-03-27] MEDS: MULTIVITAMIN (CENTRUM) TABLET PO SCH (08:52)
[2019-03-27] MEDS: PANTOPRAZOLE 40 MG TABLET PO SCH (08:53)
[2019-03-27] MEDS: FUROSEMIDE 40 MG TABLET PO SCH (08:53)
[2019-03-27] MEDS: carvediloL 6.25 MG TABLET PO SCH (08:53)
[2019-03-27] MEDS ORDERED: KETOROLAC 10 MG TABLET PO PRN (10:34)
[2019-03-27] MEDS ORDERED: POLYETHYLENE GLYCOL POWDER 17 GM PACK PO PRN (10:34)
[2019-03-27] MEDS ORDERED: HYOSCYAMINE 0.125 MG TABLET PO PRN (10:34)
[2019-03-27] MEDS ORDERED: METOCLOPRAMIDE 10 MG/10 ML UDCUP PO SCH (11:30)
[2019-03-27 12:46] VITALS: BP 100/59
[2019-03-27] MEDS ORDERED: APIXABAN 5 MG TABLET PO SCH (21:00)
[2019-03-27] MEDS ORDERED: POLYETHYLENE GLYCOL POWDER 17 GM PACK PO SCH (21:00)
[2019-03-27] MEDS ORDERED: PANTOPRAZOLE 40 MG TABLET PO SCH (21:00)
[2019-03-28] MEDS ORDERED: ASPIRIN EC 81 MG TABLET PO SCH (09:00)
[2019-03-28] MEDS ORDERED: POTASSIUM CHLORIDE 20 MEQ TABLET PO SCH (09:00)
[2019-03-28] MEDS ORDERED: NON-FORMULARY MEDICATION (Omeprazole 40 MG) PO SCH (09:00)
[2019-03-28] MEDS ORDERED: metOLazone 5 MG TABLET PO SCH (09:00)
[2019-03-28] MEDS ORDERED: CLOPIDOGREL 75 MG TABLET PO SCH (09:00)
[2019-03-28] MEDS ORDERED: MULTIVITAMIN (CENTRUM) TABLET PO SCH (09:00)
== END 2019-03-27 15:51 | disposition home or self-care (01) | DRG 254 ==
LOC: N.TELEN → SUATTDRO 03-22 02:09 → OBSVTOIN 03-22 02:09 → INTOOBSV 03-22 02:09 → SUATTDRO 03-25 13:01
PROVIDERS: ADMIT Internal Medicine; ATTEND Family Medicine

== ENCOUNTER 2019-05-08 17:22 | Inpatient (IN) ==
[2019-05-08] MEDS ORDERED: ACETAMINOPHEN 325 MG TABLET PO PRN (20:59)
[2019-05-08] MEDS ORDERED: diphenhydrAMINE CAP 25 MG CAPSULE PO PRN (20:59)
[2019-05-08] MEDS ORDERED: ZALEPLON 5 MG CAPSULE PO PRN (20:59)
[2019-05-08] MEDS ORDERED: NICOTINE 21 MG/24 HR PATCH TRANSDERM PRN (20:59)
[2019-05-08] MEDS ORDERED: BISACODYL 5 MG TABLET PO PRN (20:59)
[2019-05-08] MEDS ORDERED: guaiFENesin/DM ER 600-30 MG TABLET PO PRN (20:59)
[2019-05-08] MEDS ORDERED: MAGNESIUM SULF RIDER 2 GM in PREMIX 1 EACH IV PRN (21:32)
[2019-05-08] MEDS ORDERED: POTASSIUM CHLORIDE RIDER 10 MEQ in PREMIX 1 EACH IV PRN (21:32)
[2019-05-08] MEDS ORDERED: MAGNESIUM SULF RIDER 4 GM in PREMIX 1 EACH IV PRN (21:32)
[2019-05-08 21:40] LABS: Basophils % 0.7 % (0.0-0.8); Eosinophils # 0.1 10*3/uL (0.0-0.87); Eosinophils % 0.9 % (0.00-10.9); Hematocrit 41.9 VOL% (42.0-52.0); Immature Granulocytes % 0.5 %; Immature Granulocytes Absolute 0.03 #; Lymphocytes # 1.9 10*3/uL (1.4-4.0); Lymphocytes % 32.4 % (21.2-54.2); Mean Corpuscular HGB Conc 33.4 GM/DL (32-36); Mean Corpuscular Volume 97.4 FL (87-102); Mean Platelet Volume 11.4 FL (9.6-12.0); Monocytes % 4.6 % (1.7-12.7); Neutrophils % 60.9 % (38.7-73.9); Platelet Count 153 T/CUMM (130-400); Red Cell Distribution Width 18.9 % (9.3-17.3); White Blood Count 5.9 T/CUMM (4-12)
[2019-05-08 22:08] LABS: Albumin 2.9 G/DL (3.4-5.0); Bilirubin,Total 4.1 MG/DL (0.2-1.0); Calcium 9.3 MG/DL (8.5-10.1); Risk Ratio 2.91; Thyroid Stimulating Hormone 3.13 uIU/ml (0.358-3.74); Total Protein 7.7 G/DL (6.4-8.3)
[2019-05-08] MEDS: MORPHINE 4 MG/1 ML VIAL IV PRN (23:04)
[2019-05-09] MEDS: POTASSIUM CHLORIDE 20 MEQ TABLET PO PRN ×2 (00:39→03:12)
[2019-05-09] MEDS ORDERED: DOCUSATE SODIUM 100 MG CAPSULE PO PRN (01:17)
[2019-05-09] MEDS: FUROSEMIDE 40 MG/4 ML VIAL IV SCH ×3 (02:10→17:10)
[2019-05-09] MEDS: MORPHINE 4 MG/1 ML VIAL IV PRN (06:39)
[2019-05-09 07:51] LABS: Basophils # 0.1 10*3/uL (0.0-0.2); Basophils % 0.8 % (0.0-0.8); Eosinophils # 0.1 10*3/uL (0.0-0.87); Eosinophils % 1.1 % (0.00-10.9); Hematocrit 41.8 VOL% (42.0-52.0); Hemoglobin 13.7 GM/DL (14.0-18.0); Immature Granulocytes % 0.2 %; Immature Granulocytes Absolute 0.01 #; Lymphocytes # 2.1 10*3/uL (1.4-4.0); Mean Corpuscular HGB Conc 32.8 GM/DL (32-36); Mean Corpuscular Volume 98.6 FL (87-102); Mean Platelet Volume 11.8 FL (9.6-12.0); Monocytes % 5.3 % (1.7-12.7); NRBC # 0.02 10*3/uL; Neutrophils % 61.6 % (38.7-73.9); Platelet Count 139 T/CUMM (130-400); Red Blood Count 4.24 MC/CUMM (3.8-5.5); Red Cell Distribution Width 18.8 % (9.3-17.3); White Blood Count 6.6 T/CUMM (4-12)
[2019-05-09 08:02] LABS: Calcium 9.1 MG/DL (8.5-10.1); Osmolality,Calculated 269.4 MOS/KG (273-304)
[2019-05-09] MEDS: METOCLOPRAMIDE 10 MG/10 ML UDCUP PO SCH ×4 (09:03→21:55)
[2019-05-09] MEDS: carvediloL 6.25 MG TABLET PO SCH ×2 (09:04→17:25)
[2019-05-09] MEDS: APIXABAN 5 MG TABLET PO SCH ×2 (09:04→21:55)
[2019-05-09] MEDS: FOLIC ACID 1 MG TABLET PO SCH (09:04)
[2019-05-09] MEDS: PANTOPRAZOLE 40 MG TABLET PO SCH (09:04)
[2019-05-09] MEDS: MULTIVITAMIN (CENTRUM) TABLET PO SCH (09:04)
[2019-05-09] MEDS: CLOPIDOGREL 75 MG TABLET PO SCH (09:04)
[2019-05-09] MEDS: ONDANSETRON 4 MG/2 ML VIAL IV PRN (09:17)
[2019-05-09] MEDS ORDERED: POTASSIUM CHLORIDE 20 MEQ TABLET PO ONE (09:52)
[2019-05-09] MEDS: LEVOFLOXACIN INJ 500 MG in PREMIX 1 EACH IV SCH (11:04)
[2019-05-09] MEDS: ALBUTEROL/IPRATROPIUM 3 ML NEB RESP TX SCH ×3 (11:20→20:53)
[2019-05-09 12:32] LABS: Barbiturates Screen,Urine Negative (Negative); Benzodiazepines Screen,Urine Negative (Negative); Cannabinoid Screen,Urine Negative (Negative); Opiate Screen,Urine Positive (Negative); Phencyclidine Screen,Urine Negative (Negative)
[2019-05-09] MEDS ORDERED: ATORVASTATIN 40 MG TABLET PO SCH (21:00)
[2019-05-10] MEDS: ALBUTEROL/IPRATROPIUM 3 ML NEB RESP TX SCH ×4 (02:45→19:46)
[2019-05-10 06:36] LABS: Basophils # 0.1 10*3/uL (0.0-0.2); Basophils % 1.1 % (0.0-0.8); Eosinophils # 0.1 10*3/uL (0.0-0.87); Eosinophils % 1.8 % (0.00-10.9); Hematocrit 43.2 VOL% (42.0-52.0); Hemoglobin 14.3 GM/DL (14.0-18.0); Immature Granulocytes % 0.4 %; Immature Granulocytes Absolute 0.02 #; Lymphocytes # 1.7 10*3/uL (1.4-4.0); Lymphocytes % 30.1 % (21.2-54.2); Mean Corpuscular HGB Conc 33.1 GM/DL (32-36); Mean Corpuscular Volume 98.6 FL (87-102); Mean Platelet Volume 11.9 FL (9.6-12.0); Monocytes % 5.2 % (1.7-12.7); NRBC # 0.05 10*3/uL; Neutrophils % 61.4 % (38.7-73.9); Platelet Count 133 T/CUMM (130-400); Red Blood Count 4.38 MC/CUMM (3.8-5.5); Red Cell Distribution Width 18.7 % (9.3-17.3); White Blood Count 5.6 T/CUMM (4-12)
[2019-05-10 07:01] LABS: Calcium 9.4 MG/DL (8.5-10.1); Osmolality,Calculated 268.5 MOS/KG (273-304)
[2019-05-10] MEDS ORDERED: FUROSEMIDE 40 MG TABLET PO SCH (08:00)
[2019-05-10] MEDS: METOCLOPRAMIDE 10 MG/10 ML UDCUP PO SCH ×4 (09:32→21:48)
[2019-05-10] MEDS: carvediloL 6.25 MG TABLET PO SCH ×2 (09:33→16:39)
[2019-05-10] MEDS: APIXABAN 5 MG TABLET PO SCH ×2 (09:33→21:48)
[2019-05-10] MEDS: MULTIVITAMIN (CENTRUM) TABLET PO SCH (09:33)
[2019-05-10] MEDS: FOLIC ACID 1 MG TABLET PO SCH (09:33)
[2019-05-10] MEDS: CLOPIDOGREL 75 MG TABLET PO SCH (09:34)
[2019-05-10] MEDS: PANTOPRAZOLE 40 MG TABLET PO SCH (09:34)
[2019-05-10] MEDS: LEVOFLOXACIN INJ 500 MG in PREMIX 1 EACH IV SCH (09:37)
[2019-05-10] MEDS: FUROSEMIDE 40 MG/4 ML VIAL IV SCH (16:41)
[2019-05-10] MEDS: ONDANSETRON 4 MG/2 ML VIAL IV PRN (16:49)
[2019-05-11] MEDS: ALBUTEROL/IPRATROPIUM 3 ML NEB RESP TX SCH ×4 (01:58→20:24)
[2019-05-11 05:26] LABS: Basophils % 0.7 % (0.0-0.8); Eosinophils # 0.1 10*3/uL (0.0-0.87); Eosinophils % 1.8 % (0.00-10.9); Hemoglobin 12.9 GM/DL (14.0-18.0); Immature Granulocytes % 0.3 %; Immature Granulocytes Absolute 0.02 #; Lymphocytes # 1.2 10*3/uL (1.4-4.0); Lymphocytes % 20.3 % (21.2-54.2); Mean Corpuscular HGB Conc 33.9 GM/DL (32-36); Mean Corpuscular Volume 96.4 FL (87-102); Mean Platelet Volume 11.5 FL (9.6-12.0); Monocytes % 8.1 % (1.7-12.7); NRBC # 0.04 10*3/uL; Neutrophils % 68.8 % (38.7-73.9); Platelet Count 116 T/CUMM (130-400); Red Blood Count 3.94 MC/CUMM (3.8-5.5); White Blood Count 6.1 T/CUMM (4-12)
[2019-05-11 05:37] LABS: Calcium 8.9 MG/DL (8.5-10.1); Osmolality,Calculated 270.5 MOS/KG (273-304)
[2019-05-11] MEDS: PANTOPRAZOLE 40 MG TABLET PO SCH (09:10)
[2019-05-11] MEDS: MULTIVITAMIN (CENTRUM) TABLET PO SCH (09:10)
[2019-05-11] MEDS: carvediloL 6.25 MG TABLET PO SCH ×2 (09:11→16:20)
[2019-05-11] MEDS: FOLIC ACID 1 MG TABLET PO SCH (09:11)
[2019-05-11] MEDS: FUROSEMIDE 40 MG/4 ML VIAL IV SCH ×2 (09:11→16:20)
[2019-05-11] MEDS: APIXABAN 5 MG TABLET PO SCH ×2 (09:11→20:54)
[2019-05-11] MEDS: CLOPIDOGREL 75 MG TABLET PO SCH (09:11)
[2019-05-11] MEDS: METOCLOPRAMIDE 10 MG/10 ML UDCUP PO SCH ×4 (09:13→21:00)
[2019-05-11] MEDS: LEVOFLOXACIN INJ 500 MG in PREMIX 1 EACH IV SCH (11:28)
[2019-05-11] MEDS: ONDANSETRON 4 MG/2 ML VIAL IV PRN ×2 (11:37→20:54)
[2019-05-11] MEDS ORDERED: POTASSIUM CHLORIDE 20 MEQ TABLET PO ONE (12:37)
[2019-05-11] MEDS ORDERED: ALUM/MAG/SIMETH/LIDO VISC 1:1 30 ML BOTTLE PO ONE (12:44)
[2019-05-11] MEDS: NITROGLYCERIN SL 0.4 MG TABLET SL PRN ×2 (12:46→12:52)
[2019-05-12] MEDS: ALBUTEROL/IPRATROPIUM 3 ML NEB RESP TX SCH ×4 (00:33→19:21)
[2019-05-12 04:39] LABS: Basophils % 0.6 % (0.0-0.8); Eosinophils # 0.1 10*3/uL (0.0-0.87); Eosinophils % 2.1 % (0.00-10.9); Hematocrit 39.2 VOL% (42.0-52.0); Hemoglobin 13.4 GM/DL (14.0-18.0); Immature Granulocytes % 0.5 %; Immature Granulocytes Absolute 0.03 #; Lymphocytes # 1.5 10*3/uL (1.4-4.0); Lymphocytes % 23.8 % (21.2-54.2); Mean Corpuscular HGB Conc 34.2 GM/DL (32-36); Mean Corpuscular Volume 95.6 FL (87-102); Mean Platelet Volume 12.4 FL (9.6-12.0); Monocytes % 8.4 % (1.7-12.7); NRBC # 0.04 10*3/uL; Neutrophils % 64.6 % (38.7-73.9); Platelet Count 115 T/CUMM (130-400); Red Cell Distribution Width 18.3 % (9.3-17.3); White Blood Count 6.2 T/CUMM (4-12)
[2019-05-12 05:42] LABS: Calcium 8.8 MG/DL (8.5-10.1); Osmolality,Calculated 268.5 MOS/KG (273-304)
[2019-05-12] MEDS: METOCLOPRAMIDE 10 MG/10 ML UDCUP PO SCH ×4 (09:06→21:00)
[2019-05-12] MEDS: APIXABAN 5 MG TABLET PO SCH ×2 (09:07→20:58)
[2019-05-12] MEDS: FUROSEMIDE 40 MG/4 ML VIAL IV SCH ×2 (09:07→16:16)
[2019-05-12] MEDS: FOLIC ACID 1 MG TABLET PO SCH (09:07)
[2019-05-12] MEDS: LEVOFLOXACIN INJ 500 MG in PREMIX 1 EACH IV SCH (09:07)
[2019-05-12] MEDS: MULTIVITAMIN (CENTRUM) TABLET PO SCH (09:07)
[2019-05-12] MEDS: PANTOPRAZOLE 40 MG TABLET PO SCH (09:07)
[2019-05-12] MEDS: carvediloL 6.25 MG TABLET PO SCH ×2 (09:07→16:16)
[2019-05-12] MEDS: ONDANSETRON 4 MG/2 ML VIAL IV PRN (09:50)
[2019-05-13] MEDS: ALBUTEROL/IPRATROPIUM 3 ML NEB RESP TX SCH ×3 (00:14→13:34)
[2019-05-13 05:47] LABS: Basophils # 0.1 10*3/uL (0.0-0.2); Basophils % 0.8 % (0.0-0.8); Eosinophils # 0.1 10*3/uL (0.0-0.87); Eosinophils % 2.1 % (0.00-10.9); Hematocrit 38.5 VOL% (42.0-52.0); Hemoglobin 13.2 GM/DL (14.0-18.0); Immature Granulocytes % 0.5 %; Immature Granulocytes Absolute 0.03 #; Lymphocytes # 1.5 10*3/uL (1.4-4.0); Lymphocytes % 23.9 % (21.2-54.2); Mean Corpuscular HGB Conc 34.3 GM/DL (32-36); Mean Platelet Volume 12.6 FL (9.6-12.0); Monocytes % 7.9 % (1.7-12.7); NRBC # 0.03 10*3/uL; Neutrophils % 64.8 % (38.7-73.9); Platelet Count 115 T/CUMM (130-400); Red Blood Count 4.01 MC/CUMM (3.8-5.5); Red Cell Distribution Width 18.8 % (9.3-17.3); White Blood Count 6.2 T/CUMM (4-12)
[2019-05-13 06:05] LABS: Calcium 8.9 MG/DL (8.5-10.1); Osmolality,Calculated 268.5 MOS/KG (273-304)
[2019-05-13] MEDS ORDERED: POTASSIUM CHLORIDE 20 MEQ TABLET PO ONE (09:17)
[2019-05-13] MEDS: FUROSEMIDE 40 MG/4 ML VIAL IV SCH (09:31)
[2019-05-13] MEDS: METOCLOPRAMIDE 10 MG/10 ML UDCUP PO SCH ×3 (09:31→10:31)
[2019-05-13] MEDS: PANTOPRAZOLE 40 MG TABLET PO SCH (09:32)
[2019-05-13] MEDS: MULTIVITAMIN (CENTRUM) TABLET PO SCH (09:32)
[2019-05-13] MEDS: APIXABAN 5 MG TABLET PO SCH (09:32)
[2019-05-13] MEDS: carvediloL 6.25 MG TABLET PO SCH (09:32)
[2019-05-13] MEDS: FOLIC ACID 1 MG TABLET PO SCH (09:32)
[2019-05-13] MEDS: LEVOFLOXACIN INJ 500 MG in PREMIX 1 EACH IV SCH (09:33)
[2019-05-13] MEDS: ONDANSETRON 4 MG/2 ML VIAL IV PRN (09:40)
[2019-05-13 12:22] VITALS: BP 129/73
[2019-05-13] MEDS ORDERED: FUROSEMIDE 40 MG TABLET PO SCH (16:00)
== END 2019-05-13 14:50 | disposition home or self-care (01) | DRG 194 ==
LOC: N.TELEN → SUATTDRO 05-09 13:28
PROVIDERS: ADMIT Internal Medicine; ATTEND Internal Medicine

== ENCOUNTER 2019-05-31 00:48 | Inpatient (IN) ==
[2019-05-31] MEDS ORDERED: ENOXAPARIN 40 MG/0.4 ML SYRINGE SUBCUT SCH (03:00)
[2019-05-31] MEDS: MORPHINE 4 MG/1 ML VIAL IV PRN ×5 (03:09→23:39)
[2019-05-31 06:32] LABS: Basophils # 0.1 10*3/uL (0.0-0.2); Basophils % 1.1 % (0.0-0.8); Eosinophils # 0.1 10*3/uL (0.0-0.87); Eosinophils % 1.7 % (0.00-10.9); Hematocrit 43.2 VOL% (42.0-52.0); Hemoglobin 14.9 GM/DL (14.0-18.0); Immature Granulocytes % 0.6 %; Immature Granulocytes Absolute 0.04 #; Lymphocytes # 2.2 10*3/uL (1.4-4.0); Lymphocytes % 30.8 % (21.2-54.2); Mean Corpuscular HGB Conc 34.5 GM/DL (32-36); Mean Corpuscular Volume 95.2 FL (87-102); Mean Platelet Volume 11.8 FL (9.6-12.0); NRBC # 0.02 10*3/uL; Neutrophils % 60.8 % (38.7-73.9); Platelet Count 111 T/CUMM (130-400); Red Blood Count 4.54 MC/CUMM (3.8-5.5); Red Cell Distribution Width 18.7 % (9.3-17.3)
[2019-05-31 06:44] LABS: Albumin 2.8 G/DL (3.4-5.0); Bilirubin,Total 4.5 MG/DL (0.2-1.0); Calcium 9.1 MG/DL (8.5-10.1); Osmolality,Calculated 267.5 MOS/KG (273-304); Total Protein 7.1 G/DL (6.4-8.3)
[2019-05-31] MEDS: PANTOPRAZOLE 40 MG TABLET PO SCH (08:11)
[2019-05-31] MEDS: carvediloL 6.25 MG TABLET PO SCH ×2 (08:11→17:15)
[2019-05-31] MEDS: APIXABAN 5 MG TABLET PO SCH ×2 (08:11→20:16)
[2019-05-31] MEDS: FUROSEMIDE 40 MG TABLET PO SCH ×2 (08:11→15:33)
[2019-05-31 09:43] LABS: CKMB % 3.3 %
[2019-05-31 09:45] LABS: Troponin I 0.271 NG/ML (0.00-0.045)
[2019-05-31 10:55] LABS: Barbiturates Screen,Urine Negative (Negative); Benzodiazepines Screen,Urine Negative (Negative); Cannabinoid Screen,Urine Negative (Negative); Opiate Screen,Urine Positive (Negative); Phencyclidine Screen,Urine Negative (Negative)
[2019-05-31 12:08] LABS: CKMB % 3.5 %
[2019-05-31 12:10] LABS: Troponin I 0.265 NG/ML (0.00-0.045)
[2019-05-31] MEDS: SPIRONOLACTONE 25 MG TABLET PO SCH (13:58)
[2019-05-31 15:29] LABS: CKMB % 3.7 %
[2019-05-31 15:30] LABS: Troponin I 0.207 NG/ML (0.00-0.045)
[2019-06-01] MEDS: MORPHINE 4 MG/1 ML VIAL IV PRN ×4 (02:28→19:29)
[2019-06-01 04:52] LABS: Basophils # 0.1 10*3/uL (0.0-0.2); Basophils % 1.1 % (0.0-0.8); Eosinophils # 0.1 10*3/uL (0.0-0.87); Eosinophils % 2.6 % (0.00-10.9); Hematocrit 40.4 VOL% (42.0-52.0); Hemoglobin 13.7 GM/DL (14.0-18.0); Immature Granulocytes % 0.4 %; Immature Granulocytes Absolute 0.02 #; Lymphocytes # 1.6 10*3/uL (1.4-4.0); Lymphocytes % 29.3 % (21.2-54.2); Mean Corpuscular HGB Conc 33.9 GM/DL (32-36); Mean Corpuscular Volume 97.3 FL (87-102); Mean Platelet Volume 12.5 FL (9.6-12.0); Monocytes % 6.6 % (1.7-12.7); NRBC # 0.02 10*3/uL; Platelet Count 110 T/CUMM (130-400); Red Blood Count 4.15 MC/CUMM (3.8-5.5); Red Cell Distribution Width 18.8 % (9.3-17.3); White Blood Count 5.3 T/CUMM (4-12)
[2019-06-01 05:13] LABS: Calcium 9.2 MG/DL (8.5-10.1); Osmolality,Calculated 264.7 MOS/KG (273-304)
[2019-06-01] MEDS: FUROSEMIDE 40 MG TABLET PO SCH (08:07)
[2019-06-01] MEDS: SPIRONOLACTONE 25 MG TABLET PO SCH (08:08)
[2019-06-01] MEDS: carvediloL 6.25 MG TABLET PO SCH ×2 (08:08→17:18)
[2019-06-01] MEDS: PANTOPRAZOLE 40 MG TABLET PO SCH (08:08)
[2019-06-01] MEDS: APIXABAN 5 MG TABLET PO SCH ×2 (08:08→21:15)
[2019-06-01] MEDS ORDERED: FUROSEMIDE 20 MG/2 ML VIAL IV ONE (09:24)
[2019-06-01] MEDS: ONDANSETRON 4 MG/2 ML VIAL IV PRN (13:54)
[2019-06-01] MEDS: FUROSEMIDE 40 MG/4 ML VIAL IV SCH (17:18)
[2019-06-02] MEDS: MORPHINE 4 MG/1 ML VIAL IV PRN ×5 (02:22→23:26)
[2019-06-02] MEDS: ONDANSETRON 4 MG/2 ML VIAL IV PRN ×3 (02:25→20:42)
[2019-06-02 05:07] LABS: Basophils % 0.7 % (0.0-0.8); Eosinophils # 0.1 10*3/uL (0.0-0.87); Eosinophils % 3.1 % (0.00-10.9); Hematocrit 41.6 VOL% (42.0-52.0); Hemoglobin 14.2 GM/DL (14.0-18.0); Immature Granulocytes % 0.2 %; Immature Granulocytes Absolute 0.01 #; Lymphocytes % 21.7 % (21.2-54.2); Mean Corpuscular HGB Conc 34.1 GM/DL (32-36); Mean Corpuscular Volume 96.3 FL (87-102); Mean Platelet Volume 12.6 FL (9.6-12.0); Monocytes % 7.7 % (1.7-12.7); NRBC # 0.02 10*3/uL; Neutrophils % 66.6 % (38.7-73.9); Platelet Count 101 T/CUMM (130-400); Red Blood Count 4.32 MC/CUMM (3.8-5.5); Red Cell Distribution Width 18.6 % (9.3-17.3); White Blood Count 4.5 T/CUMM (4-12)
[2019-06-02 05:54] LABS: Calcium 9.3 MG/DL (8.5-10.1); Osmolality,Calculated 265.9 MOS/KG (273-304)
[2019-06-02 06:45] LABS: Anisocytosis 1+; Platelet Estimate Adequate; Target Cells Few
[2019-06-02] MEDS: SPIRONOLACTONE 25 MG TABLET PO SCH (08:12)
[2019-06-02] MEDS: APIXABAN 5 MG TABLET PO SCH ×2 (08:12→20:10)
[2019-06-02] MEDS: carvediloL 6.25 MG TABLET PO SCH ×2 (08:12→16:32)
[2019-06-02] MEDS: PANTOPRAZOLE 40 MG TABLET PO SCH (08:13)
[2019-06-02] MEDS: FUROSEMIDE 40 MG/4 ML VIAL IV SCH ×2 (08:13→16:32)
[2019-06-02] MEDS: DOBUTamine 500 MG/250 ML PREMIX IV SCH (14:25)
[2019-06-03] MEDS: DOBUTamine 500 MG/250 ML PREMIX IV SCH ×2 (02:09→18:32)
[2019-06-03 05:06] LABS: Basophils % 0.5 % (0.0-0.8); Eosinophils # 0.2 10*3/uL (0.0-0.87); Eosinophils % 2.9 % (0.00-10.9); Hematocrit 38.5 VOL% (42.0-52.0); Hemoglobin 13.4 GM/DL (14.0-18.0); Immature Granulocytes % 0.4 %; Immature Granulocytes Absolute 0.02 #; Lymphocytes # 1.1 10*3/uL (1.4-4.0); Lymphocytes % 19.7 % (21.2-54.2); Mean Corpuscular HGB Conc 34.8 GM/DL (32-36); Mean Corpuscular Volume 95.5 FL (87-102); Mean Platelet Volume 12.3 FL (9.6-12.0); NRBC # 0.05 10*3/uL; Neutrophils % 68.5 % (38.7-73.9); Platelet Count 112 T/CUMM (130-400); Red Blood Count 4.03 MC/CUMM (3.8-5.5); Red Cell Distribution Width 18.5 % (9.3-17.3); White Blood Count 5.5 T/CUMM (4-12)
[2019-06-03 05:25] LABS: Calcium 8.8 MG/DL (8.5-10.1); Osmolality,Calculated 267.8 MOS/KG (273-304)
[2019-06-03] MEDS: PANTOPRAZOLE 40 MG TABLET PO SCH (09:33)
[2019-06-03] MEDS: carvediloL 6.25 MG TABLET PO SCH ×2 (09:33→18:24)
[2019-06-03] MEDS: APIXABAN 5 MG TABLET PO SCH ×2 (09:33→21:50)
[2019-06-03] MEDS: FUROSEMIDE 40 MG/4 ML VIAL IV SCH ×2 (09:53→18:23)
[2019-06-03] MEDS: ONDANSETRON 4 MG/2 ML VIAL IV PRN ×2 (10:39→18:39)
[2019-06-03] MEDS: MORPHINE 4 MG/1 ML VIAL IV PRN ×3 (10:39→21:51)
[2019-06-03] MEDS: LORazepam 1 MG TABLET PO PRN (14:03)
[2019-06-04] MEDS: MORPHINE 4 MG/1 ML VIAL IV PRN ×5 (01:12→20:45)
[2019-06-04 03:49] LABS: Basophils % 0.4 % (0.0-0.8); Eosinophils # 0.2 10*3/uL (0.0-0.87); Eosinophils % 3.3 % (0.00-10.9); Hematocrit 38.1 VOL% (42.0-52.0); Hemoglobin 13.1 GM/DL (14.0-18.0); Immature Granulocytes % 0.4 %; Immature Granulocytes Absolute 0.02 #; Lymphocytes # 0.8 10*3/uL (1.4-4.0); Lymphocytes % 14.4 % (21.2-54.2); Mean Corpuscular HGB Conc 34.4 GM/DL (32-36); Mean Corpuscular Volume 95.3 FL (87-102); Mean Platelet Volume 12.2 FL (9.6-12.0); Monocytes % 7.2 % (1.7-12.7); NRBC # 0.03 10*3/uL; Neutrophils % 74.3 % (38.7-73.9); Platelet Count 108 T/CUMM (130-400); Red Cell Distribution Width 18.4 % (9.3-17.3); White Blood Count 5.7 T/CUMM (4-12)
[2019-06-04 04:14] LABS: Calcium 8.2 MG/DL (8.5-10.1); Osmolality,Calculated 271.5 MOS/KG (273-304)
[2019-06-04] MEDS: DOBUTamine 500 MG/250 ML PREMIX IV SCH ×2 (06:27→20:24)
[2019-06-04] MEDS ORDERED: POTASSIUM CHLORIDE 20 MEQ TABLET PO PRN (07:42)
[2019-06-04] MEDS: FUROSEMIDE 40 MG/4 ML VIAL IV SCH ×2 (09:12→17:38)
[2019-06-04] MEDS: carvediloL 6.25 MG TABLET PO SCH ×2 (09:12→17:40)
[2019-06-04] MEDS: PANTOPRAZOLE 40 MG TABLET PO SCH ×2 (09:13→20:25)
[2019-06-04] MEDS: APIXABAN 5 MG TABLET PO SCH ×2 (09:13→20:24)
[2019-06-04] MEDS: LORazepam 1 MG TABLET PO PRN (09:14)
[2019-06-04] MEDS ORDERED: POTASSIUM CHLORIDE 20 MEQ TABLET PO ONE (10:53)
[2019-06-04] MEDS ORDERED: metOLazone 5 MG TABLET PO ONE (11:00)
[2019-06-04] MEDS: ONDANSETRON 4 MG/2 ML VIAL IV PRN (13:04)
[2019-06-04] MEDS: METOCLOPRAMIDE 10 MG/10 ML UDCUP PO SCH ×2 (17:40→20:25)
[2019-06-05] MEDS: MORPHINE 4 MG/1 ML VIAL IV PRN ×3 (00:14→22:55)
[2019-06-05 04:47] LABS: Basophils % 0.7 % (0.0-0.8); Eosinophils # 0.3 10*3/uL (0.0-0.87); Eosinophils % 5.2 % (0.00-10.9); Hematocrit 37.2 VOL% (42.0-52.0); Immature Granulocytes % 0.3 %; Immature Granulocytes Absolute 0.02 #; Lymphocytes # 0.9 10*3/uL (1.4-4.0); Lymphocytes % 15.7 % (21.2-54.2); Mean Corpuscular HGB Conc 34.9 GM/DL (32-36); Mean Corpuscular Volume 95.4 FL (87-102); Mean Platelet Volume 12.4 FL (9.6-12.0); Monocytes % 7.7 % (1.7-12.7); NRBC # 0.07 10*3/uL; Neutrophils % 70.4 % (38.7-73.9); Platelet Count 110 T/CUMM (130-400); Red Cell Distribution Width 18.9 % (9.3-17.3); White Blood Count 5.8 T/CUMM (4-12)
[2019-06-05 05:07] LABS: Calcium 8.9 MG/DL (8.5-10.1); Osmolality,Calculated 266.7 MOS/KG (273-304)
[2019-06-05] MEDS ORDERED: POTASSIUM CHLORIDE 20 MEQ TABLET PO ONE (08:41)
[2019-06-05] MEDS: DOBUTamine 500 MG/250 ML PREMIX IV SCH ×2 (09:23→21:41)
[2019-06-05] MEDS: PANTOPRAZOLE 40 MG TABLET PO SCH ×2 (09:24→21:41)
[2019-06-05] MEDS: APIXABAN 5 MG TABLET PO SCH ×2 (09:24→21:40)
[2019-06-05] MEDS: metOLazone 5 MG TABLET PO SCH (09:24)
[2019-06-05] MEDS: carvediloL 6.25 MG TABLET PO SCH ×2 (09:24→16:34)
[2019-06-05] MEDS: METOCLOPRAMIDE 10 MG/10 ML UDCUP PO SCH ×4 (09:24→21:40)
[2019-06-05] MEDS: FUROSEMIDE 40 MG/4 ML VIAL IV SCH ×2 (09:24→16:33)
[2019-06-06] MEDS: DOBUTamine 500 MG/250 ML PREMIX IV SCH ×2 (00:59→21:35)
[2019-06-06] MEDS: LORazepam 1 MG TABLET PO PRN ×2 (03:59→11:59)
[2019-06-06 04:39] LABS: Basophils % 0.5 % (0.0-0.8); Eosinophils # 0.4 10*3/uL (0.0-0.87); Eosinophils % 6.2 % (0.00-10.9); Hematocrit 41.1 VOL% (42.0-52.0); Hemoglobin 14.2 GM/DL (14.0-18.0); Immature Granulocytes % 0.5 %; Immature Granulocytes Absolute 0.03 #; Lymphocytes # 1.1 10*3/uL (1.4-4.0); Lymphocytes % 18.8 % (21.2-54.2); Mean Corpuscular HGB Conc 34.5 GM/DL (32-36); Mean Platelet Volume 11.4 FL (9.6-12.0); Monocytes % 6.9 % (1.7-12.7); NRBC # 0.05 10*3/uL; Neutrophils % 67.1 % (38.7-73.9); Platelet Count 116 T/CUMM (130-400); Red Blood Count 4.28 MC/CUMM (3.8-5.5); Red Cell Distribution Width 18.6 % (9.3-17.3); White Blood Count 5.7 T/CUMM (4-12)
[2019-06-06 05:15] LABS: Calcium 8.6 MG/DL (8.5-10.1); Osmolality,Calculated 265.7 MOS/KG (273-304)
[2019-06-06] MEDS: METOCLOPRAMIDE 10 MG/10 ML UDCUP PO SCH ×4 (08:18→21:27)
[2019-06-06] MEDS: MORPHINE 4 MG/1 ML VIAL IV PRN ×2 (08:24→17:31)
[2019-06-06] MEDS: FUROSEMIDE 40 MG/4 ML VIAL IV SCH ×2 (08:26→17:27)
[2019-06-06] MEDS: PANTOPRAZOLE 40 MG TABLET PO SCH ×2 (08:26→21:26)
[2019-06-06] MEDS: APIXABAN 5 MG TABLET PO SCH ×2 (08:26→21:26)
[2019-06-06] MEDS: carvediloL 6.25 MG TABLET PO SCH ×2 (08:26→18:15)
[2019-06-06] MEDS: metOLazone 5 MG TABLET PO SCH (08:26)
[2019-06-06] MEDS: POTASSIUM CHLORIDE 20 MEQ TABLET PO SCH ×2 (11:51→21:26)
[2019-06-07] MEDS: MORPHINE 4 MG/1 ML VIAL IV PRN ×3 (04:06→21:59)
[2019-06-07 04:45] LABS: Basophils % 0.4 % (0.0-0.8); Eosinophils # 0.3 10*3/uL (0.0-0.87); Eosinophils % 5.9 % (0.00-10.9); Hematocrit 40.8 VOL% (42.0-52.0); Hemoglobin 14.1 GM/DL (14.0-18.0); Immature Granulocytes % 0.2 %; Immature Granulocytes Absolute 0.01 #; Lymphocytes % 20.4 % (21.2-54.2); Mean Corpuscular HGB Conc 34.6 GM/DL (32-36); Mean Corpuscular Volume 94.7 FL (87-102); Mean Platelet Volume 11.9 FL (9.6-12.0); Monocytes % 7.4 % (1.7-12.7); NRBC # 0.03 10*3/uL; Neutrophils % 65.7 % (38.7-73.9); Platelet Count 124 T/CUMM (130-400); Red Blood Count 4.31 MC/CUMM (3.8-5.5); Red Cell Distribution Width 18.5 % (9.3-17.3); White Blood Count 4.8 T/CUMM (4-12)
[2019-06-07 05:12] LABS: Calcium 8.8 MG/DL (8.5-10.1); Osmolality,Calculated 262.8 MOS/KG (273-304)
[2019-06-07] MEDS: DOBUTamine 500 MG/250 ML PREMIX IV SCH ×2 (07:28→07:29)
[2019-06-07] MEDS: metOLazone 5 MG TABLET PO SCH (09:35)
[2019-06-07] MEDS: POTASSIUM CHLORIDE 20 MEQ TABLET PO SCH ×2 (09:35→21:59)
[2019-06-07] MEDS: carvediloL 6.25 MG TABLET PO SCH ×2 (09:36→16:16)
[2019-06-07] MEDS: PANTOPRAZOLE 40 MG TABLET PO SCH ×2 (09:36→21:59)
[2019-06-07] MEDS: FUROSEMIDE 40 MG/4 ML VIAL IV SCH ×2 (09:36→16:16)
[2019-06-07] MEDS: METOCLOPRAMIDE 10 MG/10 ML UDCUP PO SCH ×4 (09:36→22:00)
[2019-06-07] MEDS: APIXABAN 5 MG TABLET PO SCH ×2 (09:36→21:59)
[2019-06-07] MEDS ORDERED: POTASSIUM CHLORIDE 20 MEQ TABLET PO ONE (11:47)
[2019-06-08 05:00] LABS: Basophils % 0.7 % (0.0-0.8); Eosinophils # 0.4 10*3/uL (0.0-0.87); Hematocrit 42.7 VOL% (42.0-52.0); Hemoglobin 14.5 GM/DL (14.0-18.0); Immature Granulocytes % 0.5 %; Immature Granulocytes Absolute 0.03 #; Lymphocytes # 1.1 10*3/uL (1.4-4.0); Mean Corpuscular Volume 96.6 FL (87-102); Mean Platelet Volume 11.1 FL (9.6-12.0); Monocytes % 7.2 % (1.7-12.7); NRBC # 0.02 10*3/uL; Neutrophils % 64.6 % (38.7-73.9); Platelet Count 116 T/CUMM (130-400); Red Blood Count 4.42 MC/CUMM (3.8-5.5); Red Cell Distribution Width 18.5 % (9.3-17.3); White Blood Count 5.5 T/CUMM (4-12)
[2019-06-08 05:32] LABS: Calcium 9.2 MG/DL (8.5-10.1); Osmolality,Calculated 264.8 MOS/KG (273-304)
[2019-06-08] MEDS: carvediloL 6.25 MG TABLET PO SCH ×2 (08:29→16:25)
[2019-06-08] MEDS: metOLazone 5 MG TABLET PO SCH (08:29)
[2019-06-08] MEDS: POTASSIUM CHLORIDE 20 MEQ TABLET PO SCH ×2 (08:30→20:44)
[2019-06-08] MEDS: APIXABAN 5 MG TABLET PO SCH ×2 (08:30→20:44)
[2019-06-08] MEDS: FUROSEMIDE 40 MG/4 ML VIAL IV SCH ×2 (08:30→16:25)
[2019-06-08] MEDS: PANTOPRAZOLE 40 MG TABLET PO SCH ×2 (08:30→20:44)
[2019-06-08] MEDS: MORPHINE 4 MG/1 ML VIAL IV PRN ×2 (08:36→20:43)
[2019-06-08] MEDS: METOCLOPRAMIDE 10 MG/10 ML UDCUP PO SCH ×2 (08:36→11:13)
[2019-06-08] MEDS: LORazepam 1 MG TABLET PO PRN (16:25)
[2019-06-09] MEDS: ONDANSETRON 4 MG/2 ML VIAL IV PRN ×3 (02:23→20:10)
[2019-06-09] MEDS: MORPHINE 4 MG/1 ML VIAL IV PRN ×3 (04:45→21:07)
[2019-06-09 05:34] LABS: Basophils % 0.3 % (0.0-0.8); Eosinophils # 0.1 10*3/uL (0.0-0.87); Eosinophils % 1.4 % (0.00-10.9); Hemoglobin 16.1 GM/DL (14.0-18.0); Immature Granulocytes % 0.3 %; Immature Granulocytes Absolute 0.02 #; Lymphocytes # 0.6 10*3/uL (1.4-4.0); Lymphocytes % 9.6 % (21.2-54.2); Mean Corpuscular HGB Conc 34.3 GM/DL (32-36); Mean Corpuscular Volume 95.5 FL (87-102); Mean Platelet Volume 11.3 FL (9.6-12.0); Monocytes % 4.9 % (1.7-12.7); Neutrophils % 83.5 % (38.7-73.9); Platelet Count 133 T/CUMM (130-400); Red Blood Count 4.92 MC/CUMM (3.8-5.5); Red Cell Distribution Width 18.4 % (9.3-17.3); White Blood Count 6.3 T/CUMM (4-12)
[2019-06-09 05:47] LABS: Calcium 9.7 MG/DL (8.5-10.1); Osmolality,Calculated 270.4 MOS/KG (273-304)
[2019-06-09] MEDS: carvediloL 6.25 MG TABLET PO SCH ×2 (08:18→17:27)
[2019-06-09] MEDS: POTASSIUM CHLORIDE 20 MEQ TABLET PO SCH ×2 (08:18→21:07)
[2019-06-09] MEDS: PANTOPRAZOLE 40 MG TABLET PO SCH (08:18)
[2019-06-09] MEDS: metOLazone 5 MG TABLET PO SCH (08:18)
[2019-06-09] MEDS: APIXABAN 5 MG TABLET PO SCH ×2 (08:18→21:07)
[2019-06-09] MEDS: FUROSEMIDE 40 MG/4 ML VIAL IV SCH (08:19)
[2019-06-09] MEDS ORDERED: POTASSIUM CHLORIDE 20 MEQ TABLET PO PRN (09:37)
[2019-06-09] MEDS: buPROPion SR 150 MG TABLET PO SCH (11:44)
[2019-06-09] MEDS: PANTOPRAZOLE 40 MG VIAL IV SCH (11:44)
[2019-06-09] MEDS: PIPERACILLIN/TAZOBACTAM 3,375 MG in SODIUM CHLORIDE 0.9% 100 ML IV SCH (17:10)
[2019-06-09] MEDS: SODIUM CHLORIDE 3% 4 ML NEB RESP TX SCH ×3 (17:42→23:21)
[2019-06-09] MEDS: LORazepam 1 MG TABLET PO PRN (21:07)
[2019-06-09] MEDS: LEVOFLOXACIN INJ 500 MG in PREMIX 1 EACH IV SCH (21:10)
[2019-06-10] MEDS: PIPERACILLIN/TAZOBACTAM 3,375 MG in SODIUM CHLORIDE 0.9% 100 ML IV SCH ×3 (01:10→15:02)
[2019-06-10] MEDS: MORPHINE 4 MG/1 ML VIAL IV PRN ×2 (05:48→15:01)
[2019-06-10 05:49] LABS: Basophils % 0.6 % (0.0-0.8); Eosinophils # 0.1 10*3/uL (0.0-0.87); Eosinophils % 1.6 % (0.00-10.9); Hematocrit 43.3 VOL% (42.0-52.0); Immature Granulocytes % 0.3 %; Immature Granulocytes Absolute 0.02 #; Lymphocytes # 0.8 10*3/uL (1.4-4.0); Lymphocytes % 12.9 % (21.2-54.2); Mean Corpuscular HGB Conc 34.6 GM/DL (32-36); Mean Corpuscular Volume 95.4 FL (87-102); Mean Platelet Volume 11.6 FL (9.6-12.0); Monocytes % 5.9 % (1.7-12.7); Neutrophils % 78.7 % (38.7-73.9); Platelet Count 117 T/CUMM (130-400); Red Blood Count 4.54 MC/CUMM (3.8-5.5); Red Cell Distribution Width 18.3 % (9.3-17.3); White Blood Count 6.3 T/CUMM (4-12)
[2019-06-10 06:06] LABS: Calcium 9.5 MG/DL (8.5-10.1); Osmolality,Calculated 271.4 MOS/KG (273-304)
[2019-06-10] MEDS: SODIUM CHLORIDE 3% 4 ML NEB RESP TX SCH ×2 (07:35→14:50)
[2019-06-10] MEDS: PANTOPRAZOLE 40 MG VIAL IV SCH (09:28)
[2019-06-10] MEDS: FUROSEMIDE 40 MG TABLET PO SCH (09:28)
[2019-06-10] MEDS: buPROPion SR 150 MG TABLET PO SCH (09:28)
[2019-06-10] MEDS: APIXABAN 5 MG TABLET PO SCH ×2 (09:28→20:47)
[2019-06-10] MEDS: SPIRONOLACTONE 25 MG TABLET PO SCH (09:29)
[2019-06-10] MEDS: carvediloL 6.25 MG TABLET PO SCH ×2 (09:29→18:09)
[2019-06-10] MEDS: POTASSIUM CHLORIDE 20 MEQ TABLET PO SCH ×2 (09:29→20:47)
[2019-06-10] MEDS: ONDANSETRON 4 MG/2 ML VIAL IV PRN ×2 (09:31→14:58)
[2019-06-10] MEDS ORDERED: POTASSIUM CHLORIDE 20 MEQ TABLET PO ONE (09:47)
[2019-06-10] MEDS: PROMETHAZINE 25 MG/1 ML VIAL IM PRN ×2 (10:53→20:53)
[2019-06-10] MEDS: LEVOFLOXACIN INJ 500 MG in PREMIX 1 EACH IV SCH (19:40)
[2019-06-11] MEDS: PIPERACILLIN/TAZOBACTAM 3,375 MG in SODIUM CHLORIDE 0.9% 100 ML IV SCH ×4 (00:45→23:20)
[2019-06-11 03:03] LABS: Basophils # 0.1 10*3/uL (0.0-0.2); Basophils % 0.7 % (0.0-0.8); Eosinophils # 0.2 10*3/uL (0.0-0.87); Eosinophils % 2.4 % (0.00-10.9); Hematocrit 41.7 VOL% (42.0-52.0); Hemoglobin 14.1 GM/DL (14.0-18.0); Immature Granulocytes % 0.4 %; Immature Granulocytes Absolute 0.03 #; Lymphocytes # 1.2 10*3/uL (1.4-4.0); Lymphocytes % 17.5 % (21.2-54.2); Mean Corpuscular HGB Conc 33.8 GM/DL (32-36); Mean Corpuscular Volume 96.1 FL (87-102); Mean Platelet Volume 11.7 FL (9.6-12.0); Monocytes % 9.4 % (1.7-12.7); Neutrophils % 69.6 % (38.7-73.9); Platelet Count 115 T/CUMM (130-400); Red Blood Count 4.34 MC/CUMM (3.8-5.5); Red Cell Distribution Width 18.2 % (9.3-17.3); White Blood Count 6.7 T/CUMM (4-12)
[2019-06-11 03:16] LABS: Calcium 9.2 MG/DL (8.5-10.1); Osmolality,Calculated 269.4 MOS/KG (273-304)
[2019-06-11] MEDS: SODIUM CHLORIDE 3% 4 ML NEB RESP TX SCH ×2 (07:48→15:12)
[2019-06-11] MEDS: MORPHINE 4 MG/1 ML VIAL IV PRN ×2 (08:23→19:30)
[2019-06-11] MEDS: SPIRONOLACTONE 25 MG TABLET PO SCH (08:23)
[2019-06-11] MEDS: PANTOPRAZOLE 40 MG VIAL IV SCH (08:23)
[2019-06-11] MEDS: buPROPion SR 150 MG TABLET PO SCH (08:24)
[2019-06-11] MEDS: carvediloL 6.25 MG TABLET PO SCH (08:24)
[2019-06-11] MEDS: FUROSEMIDE 40 MG TABLET PO SCH (08:24)
[2019-06-11] MEDS: POTASSIUM CHLORIDE 20 MEQ TABLET PO SCH ×2 (08:24→20:23)
[2019-06-11] MEDS: APIXABAN 5 MG TABLET PO SCH ×2 (08:24→20:23)
[2019-06-11] MEDS: PROMETHAZINE 25 MG/1 ML VIAL IM PRN (14:39)
[2019-06-11] MEDS: carvediloL 3.125 MG TABLET PO SCH (16:22)
[2019-06-11] MEDS: LEVOFLOXACIN INJ 500 MG in PREMIX 1 EACH IV SCH (18:15)
[2019-06-11] MEDS: SACUBITRIL/VALSARTAN 49-51 MG TABLET PO SCH (20:23)
[2019-06-12] MEDS: SODIUM CHLORIDE 3% 4 ML NEB RESP TX SCH ×4 (00:37→23:26)
[2019-06-12 05:09] LABS: Basophils # 0.1 10*3/uL (0.0-0.2); Basophils % 1.1 % (0.0-0.8); Eosinophils # 0.2 10*3/uL (0.0-0.87); Eosinophils % 2.8 % (0.00-10.9); Hematocrit 37.8 VOL% (42.0-52.0); Hemoglobin 12.9 GM/DL (14.0-18.0); Immature Granulocytes % 0.4 %; Immature Granulocytes Absolute 0.02 #; Lymphocytes # 1.1 10*3/uL (1.4-4.0); Lymphocytes % 19.4 % (21.2-54.2); Mean Corpuscular HGB Conc 34.1 GM/DL (32-36); Mean Corpuscular Volume 96.4 FL (87-102); Mean Platelet Volume 12.2 FL (9.6-12.0); Monocytes % 11.9 % (1.7-12.7); NRBC # 0.03 10*3/uL; Neutrophils % 64.4 % (38.7-73.9); Platelet Count 106 T/CUMM (130-400); Red Blood Count 3.92 MC/CUMM (3.8-5.5); Red Cell Distribution Width 18.2 % (9.3-17.3); White Blood Count 5.7 T/CUMM (4-12)
[2019-06-12 05:37] LABS: Calcium 8.8 MG/DL (8.5-10.1)
[2019-06-12] MEDS: PIPERACILLIN/TAZOBACTAM 3,375 MG in SODIUM CHLORIDE 0.9% 100 ML IV SCH ×3 (06:03→23:48)
[2019-06-12] MEDS: MORPHINE 4 MG/1 ML VIAL IV PRN ×2 (08:38→21:29)
[2019-06-12] MEDS: buPROPion SR 150 MG TABLET PO SCH (08:38)
[2019-06-12] MEDS: carvediloL 3.125 MG TABLET PO SCH ×2 (08:39→17:11)
[2019-06-12] MEDS: POTASSIUM CHLORIDE 20 MEQ TABLET PO SCH ×2 (08:39→21:29)
[2019-06-12] MEDS: FUROSEMIDE 40 MG TABLET PO SCH (08:40)
[2019-06-12] MEDS: PANTOPRAZOLE 40 MG VIAL IV SCH (08:40)
[2019-06-12] MEDS: APIXABAN 5 MG TABLET PO SCH ×2 (08:40→21:29)
[2019-06-12] MEDS: SPIRONOLACTONE 25 MG TABLET PO SCH (08:40)
[2019-06-12] MEDS: SACUBITRIL/VALSARTAN 49-51 MG TABLET PO SCH ×2 (09:49→21:29)
[2019-06-12] MEDS ORDERED: POTASSIUM CHLORIDE 20 MEQ TABLET PO ONE (11:35)
[2019-06-12] MEDS: DIGOXIN 0.25 MG TABLET PO SCH ×2 (13:10→17:11)
[2019-06-12] MEDS: ONDANSETRON 4 MG/2 ML VIAL IV PRN (13:10)
[2019-06-12] MEDS: LORazepam 0.5 MG TABLET PO PRN (16:11)
[2019-06-12] MEDS: LEVOFLOXACIN INJ 500 MG in PREMIX 1 EACH IV SCH (22:06)
[2019-06-13 04:47] LABS: Basophils # 0.1 10*3/uL (0.0-0.2); Basophils % 1.1 % (0.0-0.8); Eosinophils # 0.2 10*3/uL (0.0-0.87); Eosinophils % 2.3 % (0.00-10.9); Hematocrit 43.1 VOL% (42.0-52.0); Hemoglobin 14.7 GM/DL (14.0-18.0); Immature Granulocytes % 0.3 %; Immature Granulocytes Absolute 0.02 #; Lymphocytes # 1.1 10*3/uL (1.4-4.0); Lymphocytes % 16.4 % (21.2-54.2); Mean Corpuscular HGB Conc 34.1 GM/DL (32-36); Mean Corpuscular Volume 96.4 FL (87-102); Mean Platelet Volume 11.3 FL (9.6-12.0); NRBC # 0.04 10*3/uL; Neutrophils % 69.9 % (38.7-73.9); Platelet Count 118 T/CUMM (130-400); Red Blood Count 4.47 MC/CUMM (3.8-5.5); Red Cell Distribution Width 18.6 % (9.3-17.3); White Blood Count 6.5 T/CUMM (4-12)
[2019-06-13 05:10] LABS: Calcium 9.1 MG/DL (8.5-10.1); Osmolality,Calculated 267.2 MOS/KG (273-304)
[2019-06-13] MEDS: PIPERACILLIN/TAZOBACTAM 3,375 MG in SODIUM CHLORIDE 0.9% 100 ML IV SCH ×2 (06:18→14:49)
[2019-06-13] MEDS: SODIUM CHLORIDE 3% 4 ML NEB RESP TX SCH ×2 (08:00→15:18)
[2019-06-13] MEDS: LORazepam 0.5 MG TABLET PO PRN (08:53)
[2019-06-13] MEDS: SACUBITRIL/VALSARTAN 49-51 MG TABLET PO SCH (08:53)
[2019-06-13] MEDS: POTASSIUM CHLORIDE 20 MEQ TABLET PO SCH (08:53)
[2019-06-13] MEDS: buPROPion SR 150 MG TABLET PO SCH (08:54)
[2019-06-13] MEDS: FUROSEMIDE 40 MG TABLET PO SCH (08:54)
[2019-06-13] MEDS: APIXABAN 5 MG TABLET PO SCH (08:54)
[2019-06-13] MEDS: carvediloL 3.125 MG TABLET PO SCH ×2 (08:54→16:41)
[2019-06-13] MEDS: PANTOPRAZOLE 40 MG VIAL IV SCH (08:55)
[2019-06-13] MEDS: SPIRONOLACTONE 25 MG TABLET PO SCH (08:55)
[2019-06-13] MEDS ORDERED: POTASSIUM CHLORIDE 20 MEQ TABLET PO ONE (09:46)
[2019-06-13] MEDS ORDERED: DIGOXIN 0.125 MG TABLET PO SCH (13:00)
[2019-06-13] MEDS ORDERED: MORPHINE 4 MG/1 ML VIAL IV PRN (13:56)
[2019-06-13 16:11] VITALS: BP 125/90
[2019-06-13] MEDS ORDERED: POTASSIUM CHLORIDE 20 MEQ/15 ML UDCUP PO SCH (21:00)
== END 2019-06-13 17:24 | disposition left against medical advice (07) | DRG 194 ==
LOC: N.2W → SUATTDRO 01:55 → N.TELEN 02:19 → SUATTDRO 06-03 14:28
PROVIDERS: ADMIT Internal Medicine; ATTEND Family Medicine

== ENCOUNTER 2019-07-05 21:41 | Inpatient (IN) ==
[2019-07-06] MEDS ORDERED: guaiFENesin/DM ER 600-30 MG TABLET PO PRN (04:04)
[2019-07-06] MEDS ORDERED: ALUMINUM/MAGNES/SIMETH MAX STR 30 ML UDCUP PO PRN (04:04)
[2019-07-06] MEDS ORDERED: NITROGLYCERIN SL 0.4 MG TABLET SL PRN ×2 (04:04→14:46)
[2019-07-06] MEDS ORDERED: hydrALAZINE 20 MG/1 ML VIAL IV PRN (04:04)
[2019-07-06] MEDS ORDERED: ALBUTEROL/IPRATROPIUM 3 ML NEB RESP TX PRN (04:04)
[2019-07-06] MEDS ORDERED: diphenhydrAMINE CAP 25 MG CAPSULE PO PRN (04:04)
[2019-07-06] MEDS ORDERED: NICOTINE 21 MG/24 HR PATCH TRANSDERM PRN (04:04)
[2019-07-06] MEDS ORDERED: ACETAMINOPHEN 325 MG TABLET PO PRN (04:04)
[2019-07-06 05:13] LABS: Basophils # 0.1 10*3/uL (0.0-0.2); Basophils % 1.3 % (0.0-0.8); Eosinophils # 0.1 10*3/uL (0.0-0.87); Eosinophils % 1.7 % (0.00-10.9); Hematocrit 42.2 VOL% (42.0-52.0); Hemoglobin 13.7 GM/DL (14.0-18.0); Immature Granulocytes % 0.6 %; Immature Granulocytes Absolute 0.03 #; Lymphocytes # 1.8 10*3/uL (1.4-4.0); Lymphocytes % 33.2 % (21.2-54.2); Mean Corpuscular HGB Conc 32.5 GM/DL (32-36); Mean Corpuscular Volume 100.5 FL (87-102); Mean Platelet Volume 10.8 FL (9.6-12.0); Monocytes % 5.2 % (1.7-12.7); NRBC # 0.03 10*3/uL; Platelet Count 183 T/CUMM (130-400); Red Cell Distribution Width 18.9 % (9.3-17.3); White Blood Count 5.4 T/CUMM (4-12)
[2019-07-06] MEDS: MORPHINE 4 MG/1 ML VIAL IV PRN ×4 (06:31→22:08)
[2019-07-06 07:18] LABS: Calcium 9.3 MG/DL (8.5-10.1)
[2019-07-06 07:19] LABS: Albumin 2.9 G/DL (3.4-5.0)
[2019-07-06 07:24] LABS: Bilirubin,Total 4.3 MG/DL (0.2-1.0); Total Protein 7.3 G/DL (6.4-8.3)
[2019-07-06 07:33] LABS: Risk Ratio 2.89; Thyroid Stimulating Hormone 2.87 uIU/ml (0.358-3.74); VLDL CHOLESTEROL 14.6 MG/DL
[2019-07-06] MEDS: carvediloL 6.25 MG TABLET PO SCH ×2 (08:53→17:58)
[2019-07-06] MEDS: ASPIRIN EC 325 MG TABLET PO SCH (08:53)
[2019-07-06 09:47] LABS: Barbiturates Screen,Urine Negative (Negative); Benzodiazepines Screen,Urine Negative (Negative); Cannabinoid Screen,Urine Negative (Negative); Opiate Screen,Urine Positive (Negative); Phencyclidine Screen,Urine Negative (Negative)
[2019-07-06] MEDS: ONDANSETRON 4 MG/2 ML VIAL IV PRN ×3 (11:50→22:15)
[2019-07-06] MEDS ORDERED: DOCUSATE SODIUM 100 MG CAPSULE PO PRN (14:46)
[2019-07-06] MEDS ORDERED: FUROSEMIDE 40 MG TABLET PO SCH (15:00)
[2019-07-06] MEDS: METOCLOPRAMIDE 10 MG/10 ML UDCUP PO SCH ×3 (17:58→21:56)
[2019-07-06] MEDS: APIXABAN 5 MG TABLET PO SCH (20:59)
[2019-07-06] MEDS: PANTOPRAZOLE 40 MG TABLET PO SCH (20:59)
[2019-07-07] MEDS: ONDANSETRON 4 MG/2 ML VIAL IV PRN ×5 (02:39→21:34)
[2019-07-07] MEDS: MORPHINE 4 MG/1 ML VIAL IV PRN ×5 (02:39→21:34)
[2019-07-07 05:30] LABS: Basophils # 0.1 10*3/uL (0.0-0.2); Basophils % 1.4 % (0.0-0.8); Eosinophils # 0.2 10*3/uL (0.0-0.87); Eosinophils % 3.5 % (0.00-10.9); Hematocrit 40.5 VOL% (42.0-52.0); Hemoglobin 13.3 GM/DL (14.0-18.0); Immature Granulocytes % 0.2 %; Immature Granulocytes Absolute 0.01 #; Lymphocytes # 1.9 10*3/uL (1.4-4.0); Mean Corpuscular HGB Conc 32.8 GM/DL (32-36); Mean Corpuscular Volume 99.5 FL (87-102); Mean Platelet Volume 11.5 FL (9.6-12.0); Monocytes % 4.7 % (1.7-12.7); NRBC # 0.03 10*3/uL; Neutrophils % 52.2 % (38.7-73.9); Platelet Count 181 T/CUMM (130-400); Red Blood Count 4.07 MC/CUMM (3.8-5.5); Red Cell Distribution Width 19.3 % (9.3-17.3); White Blood Count 4.9 T/CUMM (4-12)
[2019-07-07 05:45] LABS: Calcium 9.3 MG/DL (8.5-10.1); Osmolality,Calculated 265.5 MOS/KG (273-304)
[2019-07-07] MEDS: carvediloL 6.25 MG TABLET PO SCH ×2 (08:14→16:30)
[2019-07-07] MEDS: MULTIVITAMIN (CENTRUM) TABLET PO SCH (08:14)
[2019-07-07] MEDS: APIXABAN 5 MG TABLET PO SCH (08:14)
[2019-07-07] MEDS: ASPIRIN EC 325 MG TABLET PO SCH (08:15)
[2019-07-07] MEDS: PANTOPRAZOLE 40 MG TABLET PO SCH ×2 (08:15→21:34)
[2019-07-07] MEDS: FOLIC ACID 1 MG TABLET PO SCH (08:15)
[2019-07-07] MEDS: METOCLOPRAMIDE 10 MG/10 ML UDCUP PO SCH ×4 (08:16→21:35)
[2019-07-07] MEDS ORDERED: POTASSIUM CHLORIDE 20 MEQ TABLET PO SCH (09:00)
[2019-07-07] MEDS ORDERED: FUROSEMIDE 40 MG/4 ML VIAL IV ONE (12:58)
[2019-07-07] MEDS: FUROSEMIDE 40 MG TABLET PO SCH ×2 (14:41→21:34)
[2019-07-07] MEDS: CITALOPRAM 20 MG TABLET PO SCH (21:34)
[2019-07-08] MEDS: ONDANSETRON 4 MG/2 ML VIAL IV PRN ×5 (01:40→20:49)
[2019-07-08] MEDS: MORPHINE 4 MG/1 ML VIAL IV PRN ×5 (01:41→20:50)
[2019-07-08 04:49] LABS: Basophils # 0.1 10*3/uL (0.0-0.2); Basophils % 1.5 % (0.0-0.8); Eosinophils # 0.1 10*3/uL (0.0-0.87); Eosinophils % 2.1 % (0.00-10.9); Hematocrit 38.6 VOL% (42.0-52.0); Hemoglobin 13.2 GM/DL (14.0-18.0); Immature Granulocytes % 0.4 %; Immature Granulocytes Absolute 0.02 #; Lymphocytes # 1.6 10*3/uL (1.4-4.0); Lymphocytes % 30.1 % (21.2-54.2); Mean Corpuscular HGB Conc 34.2 GM/DL (32-36); Mean Platelet Volume 11.4 FL (9.6-12.0); Monocytes % 7.9 % (1.7-12.7); NRBC # 0.03 10*3/uL; Platelet Count 167 T/CUMM (130-400); Red Blood Count 3.98 MC/CUMM (3.8-5.5); Red Cell Distribution Width 18.6 % (9.3-17.3); White Blood Count 5.2 T/CUMM (4-12)
[2019-07-08 05:06] LABS: Calcium 9.3 MG/DL (8.5-10.1); Osmolality,Calculated 267.4 MOS/KG (273-304)
[2019-07-08] MEDS: METOCLOPRAMIDE 10 MG/10 ML UDCUP PO SCH ×4 (08:01→20:50)
[2019-07-08] MEDS: MULTIVITAMIN (CENTRUM) TABLET PO SCH (09:13)
[2019-07-08] MEDS: FOLIC ACID 1 MG TABLET PO SCH (09:13)
[2019-07-08] MEDS: FUROSEMIDE 40 MG TABLET PO SCH ×3 (09:13→20:49)
[2019-07-08] MEDS: carvediloL 6.25 MG TABLET PO SCH ×2 (09:13→17:52)
[2019-07-08] MEDS: PANTOPRAZOLE 40 MG TABLET PO SCH ×2 (09:13→20:49)
[2019-07-08] MEDS: ASPIRIN EC 325 MG TABLET PO SCH (09:13)
[2019-07-08] MEDS: CITALOPRAM 20 MG TABLET PO SCH (20:49)
[2019-07-09] MEDS: MORPHINE 4 MG/1 ML VIAL IV PRN ×4 (01:07→21:04)
[2019-07-09 04:44] LABS: Basophils % 0.9 % (0.0-0.8); Eosinophils # 0.1 10*3/uL (0.0-0.87); Eosinophils % 3.1 % (0.00-10.9); Hematocrit 38.5 VOL% (42.0-52.0); Hemoglobin 12.5 GM/DL (14.0-18.0); Immature Granulocytes % 0.5 %; Immature Granulocytes Absolute 0.02 #; Lymphocytes # 1.1 10*3/uL (1.4-4.0); Lymphocytes % 24.9 % (21.2-54.2); Mean Corpuscular HGB Conc 32.5 GM/DL (32-36); Mean Corpuscular Volume 99.7 FL (87-102); Monocytes % 8.5 % (1.7-12.7); NRBC # 0.03 10*3/uL; Neutrophils % 62.1 % (38.7-73.9); Platelet Count 156 T/CUMM (130-400); Red Blood Count 3.86 MC/CUMM (3.8-5.5); Red Cell Distribution Width 18.9 % (9.3-17.3); White Blood Count 4.3 T/CUMM (4-12)
[2019-07-09 05:22] LABS: Calcium 9.1 MG/DL (8.5-10.1); Osmolality,Calculated 272.1 MOS/KG (273-304)
[2019-07-09] MEDS: ONDANSETRON 4 MG/2 ML VIAL IV PRN ×4 (06:02→21:07)
[2019-07-09] MEDS: PANTOPRAZOLE 40 MG TABLET PO SCH ×2 (08:32→21:00)
[2019-07-09] MEDS: MULTIVITAMIN (CENTRUM) TABLET PO SCH (08:32)
[2019-07-09] MEDS: ASPIRIN EC 325 MG TABLET PO SCH (08:33)
[2019-07-09] MEDS: FUROSEMIDE 40 MG TABLET PO SCH ×3 (08:33→21:00)
[2019-07-09] MEDS: METOCLOPRAMIDE 10 MG/10 ML UDCUP PO SCH ×4 (08:34→21:14)
[2019-07-09] MEDS: FOLIC ACID 1 MG TABLET PO SCH (08:34)
[2019-07-09] MEDS: carvediloL 6.25 MG TABLET PO SCH ×2 (08:34→16:17)
[2019-07-09] MEDS ORDERED: ENOXAPARIN 30 MG/0.3 ML SYRINGE SUBCUT ONE (12:41)
[2019-07-09] MEDS: POTASSIUM CHLORIDE 20 MEQ TABLET PO PRN ×3 (13:04→16:17)
[2019-07-09] MEDS: hydrALAZINE 10 MG TABLET PO SCH ×2 (14:21→21:00)
[2019-07-09] MEDS: CITALOPRAM 20 MG TABLET PO SCH (21:00)
[2019-07-10] MEDS: MORPHINE 4 MG/1 ML VIAL IV PRN ×4 (04:05→20:58)
[2019-07-10] MEDS: ONDANSETRON 4 MG/2 ML VIAL IV PRN ×4 (04:09→21:08)
[2019-07-10 04:59] LABS: Basophils % 0.8 % (0.0-0.8); Eosinophils # 0.1 10*3/uL (0.0-0.87); Eosinophils % 2.1 % (0.00-10.9); Hematocrit 38.9 VOL% (42.0-52.0); Hemoglobin 13.1 GM/DL (14.0-18.0); Immature Granulocytes % 0.4 %; Immature Granulocytes Absolute 0.02 #; Lymphocytes # 1.5 10*3/uL (1.4-4.0); Mean Corpuscular HGB Conc 33.7 GM/DL (32-36); Mean Corpuscular Volume 99.5 FL (87-102); Mean Platelet Volume 11.4 FL (9.6-12.0); NRBC # 0.04 10*3/uL; Neutrophils % 59.7 % (38.7-73.9); Platelet Count 164 T/CUMM (130-400); Red Blood Count 3.91 MC/CUMM (3.8-5.5); Red Cell Distribution Width 19.6 % (9.3-17.3); White Blood Count 5.1 T/CUMM (4-12)
[2019-07-10 05:25] LABS: Calcium 8.9 MG/DL (8.5-10.1); Osmolality,Calculated 272.1 MOS/KG (273-304)
[2019-07-10] MEDS: POTASSIUM CHLORIDE 20 MEQ TABLET PO PRN ×2 (06:07→09:40)
[2019-07-10] MEDS: MULTIVITAMIN (CENTRUM) TABLET PO SCH (09:40)
[2019-07-10] MEDS: carvediloL 6.25 MG TABLET PO SCH ×2 (09:40→16:51)
[2019-07-10] MEDS: PANTOPRAZOLE 40 MG TABLET PO SCH ×2 (09:40→20:58)
[2019-07-10] MEDS: FOLIC ACID 1 MG TABLET PO SCH (09:40)
[2019-07-10] MEDS: FUROSEMIDE 40 MG TABLET PO SCH ×3 (09:40→20:58)
[2019-07-10] MEDS: ASPIRIN EC 325 MG TABLET PO SCH (09:40)
[2019-07-10] MEDS: METOCLOPRAMIDE 10 MG/10 ML UDCUP PO SCH ×4 (10:21→21:10)
[2019-07-10] MEDS: hydrALAZINE 10 MG TABLET PO SCH ×3 (10:21→21:10)
[2019-07-10] MEDS ORDERED: ENOXAPARIN 120 MG/0.8 ML SYRINGE SUBCUT SCH (13:00)
[2019-07-10] MEDS: APIXABAN 5 MG TABLET PO SCH (20:58)
[2019-07-10] MEDS: CITALOPRAM 20 MG TABLET PO SCH (20:58)
[2019-07-11] MEDS: MORPHINE 4 MG/1 ML VIAL IV PRN ×2 (04:38→10:31)
[2019-07-11] MEDS: ONDANSETRON 4 MG/2 ML VIAL IV PRN ×3 (04:38→20:02)
[2019-07-11] MEDS: METOCLOPRAMIDE 10 MG/10 ML UDCUP PO SCH ×4 (07:05→20:09)
[2019-07-11] MEDS: FOLIC ACID 1 MG TABLET PO SCH (10:24)
[2019-07-11] MEDS: FUROSEMIDE 40 MG TABLET PO SCH ×3 (10:24→20:02)
[2019-07-11] MEDS: carvediloL 6.25 MG TABLET PO SCH ×2 (10:24→18:06)
[2019-07-11] MEDS: APIXABAN 5 MG TABLET PO SCH ×2 (10:24→20:02)
[2019-07-11] MEDS: MULTIVITAMIN (CENTRUM) TABLET PO SCH (10:24)
[2019-07-11] MEDS: hydrALAZINE 10 MG TABLET PO SCH ×3 (10:24→20:08)
[2019-07-11] MEDS: ASPIRIN EC 325 MG TABLET PO SCH (10:24)
[2019-07-11] MEDS: PANTOPRAZOLE 40 MG TABLET PO SCH ×2 (10:25→20:02)
[2019-07-11] MEDS ORDERED: MORPHINE 4 MG/1 ML VIAL IV PRN (19:00)
[2019-07-11] MEDS: POTASSIUM CHLORIDE 20 MEQ TABLET PO PRN (20:01)
[2019-07-11] MEDS: CITALOPRAM 20 MG TABLET PO SCH (20:02)
[2019-07-12] MEDS: ONDANSETRON 4 MG/2 ML VIAL IV PRN ×3 (00:43→12:13)
[2019-07-12 06:18] LABS: Calcium 8.7 MG/DL (8.5-10.1)
[2019-07-12] MEDS: METOCLOPRAMIDE 10 MG/10 ML UDCUP PO SCH ×2 (07:41→11:48)
[2019-07-12] MEDS ORDERED: POTASSIUM CHLORIDE 20 MEQ TABLET PO ONE (07:53)
[2019-07-12] MEDS: carvediloL 6.25 MG TABLET PO SCH (09:01)
[2019-07-12] MEDS: PANTOPRAZOLE 40 MG TABLET PO SCH (09:01)
[2019-07-12] MEDS: APIXABAN 5 MG TABLET PO SCH (09:01)
[2019-07-12] MEDS: FOLIC ACID 1 MG TABLET PO SCH (09:01)
[2019-07-12] MEDS: FUROSEMIDE 40 MG TABLET PO SCH ×2 (09:01→15:57)
[2019-07-12] MEDS: MULTIVITAMIN (CENTRUM) TABLET PO SCH (09:01)
[2019-07-12] MEDS: hydrALAZINE 10 MG TABLET PO SCH ×2 (09:01→15:57)
[2019-07-12 11:53] VITALS: BP 109/68
== END 2019-07-12 16:12 | disposition home or self-care (01) | DRG 203 ==
LOC: N.TELEN → SUATTDRO 07-06 00:40 → N.TELEN 07-06 17:01
PROVIDERS: ADMIT Internal Medicine Geriatric Medicine; ATTEND Internal Medicine

== ENCOUNTER 2019-07-27 23:06 | Observation (INO) ==
[2019-07-28] MEDS ORDERED: MORPHINE 4 MG/1 ML VIAL IV PRN (04:28)
[2019-07-28] MEDS ORDERED: ONDANSETRON 4 MG/2 ML VIAL IV PRN (04:28)
[2019-07-28] MEDS ORDERED: NICOTINE 21 MG/24 HR PATCH TRANSDERM PRN (04:43)
[2019-07-28] MEDS ORDERED: NITROGLYCERIN SL 0.4 MG TABLET SL PRN (05:11)
[2019-07-28 05:28] LABS: Basophils # 0.1 10*3/uL (0.0-0.2); Basophils % 1.4 % (0.0-0.8); Eosinophils # 0.1 10*3/uL (0.0-0.87); Eosinophils % 1.5 % (0.00-10.9); Hematocrit 40.6 VOL% (42.0-52.0); Hemoglobin 13.4 GM/DL (14.0-18.0); Immature Granulocytes % 0.3 %; Immature Granulocytes Absolute 0.02 #; Lymphocytes # 1.4 10*3/uL (1.4-4.0); Lymphocytes % 24.7 % (21.2-54.2); Mean Corpuscular Volume 98.8 FL (87-102); Mean Platelet Volume 11.7 FL (9.6-12.0); Monocytes % 6.9 % (1.7-12.7); NRBC # 0.04 10*3/uL; Neutrophils % 65.2 % (38.7-73.9); Platelet Count 99 T/CUMM (130-400); Red Blood Count 4.11 MC/CUMM (3.8-5.5); White Blood Count 5.8 T/CUMM (4-12)
[2019-07-28] MEDS ORDERED: DOCUSATE SODIUM 100 MG CAPSULE PO PRN (05:52)
[2019-07-28 06:24] LABS: Anisocytosis 1+; Eosinophils 1 % (0-10); Lymphocytes 25 % (20-55); Segmented Neutrophils 71 % (50-85); Target Cells 1+; Total Cells Counted 100
[2019-07-28 06:25] LABS: Platelet Estimate Adequate
[2019-07-28 06:26] LABS: Bilirubin,Total 4.9 MG/DL (0.2-1.0); Calcium 9.3 MG/DL (8.5-10.1); Osmolality,Calculated 271.1 MOS/KG (273-304); Risk Ratio 2.49; Thyroid Stimulating Hormone 2.3 uIU/ml (0.358-3.74); Total Protein 6.9 G/DL (6.4-8.3); VLDL CHOLESTEROL 12.6 MG/DL
[2019-07-28] MEDS ORDERED: POTASSIUM CHLORIDE 20 MEQ TABLET PO ONE (07:38)
[2019-07-28] MEDS ORDERED: FUROSEMIDE 40 MG TABLET PO SCH (09:00)
[2019-07-28] MEDS: METOCLOPRAMIDE 10 MG/10 ML UDCUP PO SCH ×5 (09:11→20:56)
[2019-07-28] MEDS: FUROSEMIDE 40 MG/4 ML VIAL IV SCH ×2 (09:11→15:03)
[2019-07-28] MEDS: POTASSIUM CHLORIDE 20 MEQ TABLET PO SCH (09:12)
[2019-07-28] MEDS: APIXABAN 5 MG TABLET PO SCH ×2 (09:12→20:54)
[2019-07-28] MEDS: FOLIC ACID 1 MG TABLET PO SCH (09:13)
[2019-07-28] MEDS: hydrALAZINE 10 MG TABLET PO SCH ×3 (09:13→20:56)
[2019-07-28] MEDS: carvediloL 6.25 MG TABLET PO SCH ×2 (09:13→17:11)
[2019-07-28] MEDS: MULTIVITAMIN (CENTRUM) TABLET PO SCH (09:13)
[2019-07-28] MEDS: PANTOPRAZOLE 40 MG TABLET PO SCH ×2 (09:13→20:55)
[2019-07-28] MEDS: ACETAMINOPHEN 325 MG TABLET PO PRN ×3 (11:11→20:54)
[2019-07-28] MEDS ORDERED: CITALOPRAM 20 MG TABLET PO SCH (21:00)
[2019-07-29 06:23] LABS: Basophils # 0.1 10*3/uL (0.0-0.2); Basophils % 1.6 % (0.0-0.8); Eosinophils # 0.1 10*3/uL (0.0-0.87); Eosinophils % 2.6 % (0.00-10.9); Hematocrit 38.9 VOL% (42.0-52.0); Hemoglobin 13.1 GM/DL (14.0-18.0); Immature Granulocytes % 0.2 %; Immature Granulocytes Absolute 0.01 #; Lymphocytes # 1.2 10*3/uL (1.4-4.0); Lymphocytes % 24.2 % (21.2-54.2); Mean Corpuscular HGB Conc 33.7 GM/DL (32-36); Mean Corpuscular Volume 97.5 FL (87-102); Mean Platelet Volume 11.7 FL (9.6-12.0); Monocytes % 9.1 % (1.7-12.7); NRBC # 0.05 10*3/uL; Neutrophils % 62.3 % (38.7-73.9); Platelet Count 93 T/CUMM (130-400); Red Blood Count 3.99 MC/CUMM (3.8-5.5); Red Cell Distribution Width 18.4 % (9.3-17.3); White Blood Count 5.1 T/CUMM (4-12)
[2019-07-29] MEDS: METOCLOPRAMIDE 10 MG/10 ML UDCUP PO SCH ×2 (06:41→11:53)
[2019-07-29 06:43] LABS: Hypochromasia 1+; Target Cells 1+
[2019-07-29 06:44] LABS: Anisocytosis 1+; Macrocytosis 1+; Platelet Estimate Decreased; Polychromasia Slight
[2019-07-29 06:52] LABS: Calcium 9.1 MG/DL (8.5-10.1); Osmolality,Calculated 270.1 MOS/KG (273-304)
[2019-07-29 08:19] VITALS: BP 103/61
[2019-07-29] MEDS: carvediloL 6.25 MG TABLET PO SCH (09:23)
[2019-07-29] MEDS: FUROSEMIDE 40 MG/4 ML VIAL IV SCH (09:23)
[2019-07-29] MEDS: PANTOPRAZOLE 40 MG TABLET PO SCH (09:23)
[2019-07-29] MEDS: ACETAMINOPHEN 325 MG TABLET PO PRN (09:23)
[2019-07-29] MEDS: FOLIC ACID 1 MG TABLET PO SCH (09:23)
[2019-07-29] MEDS: MULTIVITAMIN (CENTRUM) TABLET PO SCH (09:23)
[2019-07-29] MEDS: POTASSIUM CHLORIDE 20 MEQ TABLET PO SCH (09:23)
[2019-07-29] MEDS: APIXABAN 5 MG TABLET PO SCH (09:23)
[2019-07-29] MEDS: hydrALAZINE 10 MG TABLET PO SCH (09:25)
[2019-07-29] MEDS ORDERED: POTASSIUM CHLORIDE 20 MEQ TABLET PO ONE (09:53)
== END 2019-07-29 13:48 | disposition home or self-care (01) ==
LOC: N.TELES → SUATTDRO 07-28 01:51
PROVIDERS: ADMIT Internal Medicine; ATTEND Internal Medicine